=== PATIENT | male | born 1940 | race Caucasian/White ===

== ENCOUNTER 2016-10-26 07:33 | Outpatient (CLI) | payer MEDICARE, OTHER | END 2016-10-26 07:34 | disposition home or self-care (01) | DX: I48.91 Unspecified atrial fibrillation (principal) ==

== ENCOUNTER 2016-12-14 07:39 | Outpatient (CLI) | payer MEDICARE, OTHER | END 2016-12-14 07:40 | disposition home or self-care (01) | DX: I48.91 Unspecified atrial fibrillation (principal) ==

== ENCOUNTER 2017-01-11 07:34 | Outpatient (CLI) | payer MEDICARE, OTHER | END 2017-01-11 07:35 | disposition home or self-care (01) | DX: I48.91 Unspecified atrial fibrillation (principal) ==

== ENCOUNTER 2017-01-22 07:44 | Outpatient (CLI) | payer MEDICARE, OTHER | END 2017-01-22 07:45 | disposition home or self-care (01) | DX: I48.91 Unspecified atrial fibrillation (principal) ==

== ENCOUNTER 2017-01-31 07:50 | Outpatient (CLI) | payer MEDICARE, OTHER | END 2017-01-31 07:51 | disposition home or self-care (01) | DX: I48.91 Unspecified atrial fibrillation (principal) ==

== ENCOUNTER 2017-02-05 08:02 | Outpatient (CLI) | payer MEDICARE, OTHER | END 2017-02-05 08:03 | disposition home or self-care (01) | DX: I48.91 Unspecified atrial fibrillation (principal) ==

== ENCOUNTER 2017-03-04 07:34 | Outpatient (CLI) | payer MEDICARE, OTHER | END 2017-03-04 07:35 | disposition home or self-care (01) | DX: I48.91 Unspecified atrial fibrillation (principal) ==

== ENCOUNTER 2017-03-22 07:50 | Outpatient (CLI) | payer MEDICARE, OTHER | END 2017-03-22 07:51 | disposition home or self-care (01) | LOC: LAB.F 07:50 | PROVIDERS: ATTEND Internal Medicine | DX: I48.91 Unspecified atrial fibrillation (principal) | CPT/HCPCS: 85610 ==

== ENCOUNTER 2017-04-19 13:21 | Outpatient (CLI) | payer MEDICARE, OTHER | END 2017-04-19 13:22 | disposition home or self-care (01) | LOC: LAB.F 13:21 | PROVIDERS: ATTEND Internal Medicine | DX: I48.91 Unspecified atrial fibrillation (principal) | CPT/HCPCS: 85610 ==

== ENCOUNTER 2017-05-03 15:50 | Outpatient (CLI) | payer MEDICARE, OTHER | END 2017-05-03 15:51 | disposition home or self-care (01) | LOC: LAB.F 15:50 | PROVIDERS: ATTEND Internal Medicine | DX: I48.91 Unspecified atrial fibrillation (principal) | CPT/HCPCS: 85610 ==

== ENCOUNTER 2017-07-05 14:43 | Outpatient (CLI) | payer MEDICARE, OTHER | END 2017-07-05 14:44 | disposition home or self-care (01) | LOC: LAB.F 14:43 | PROVIDERS: ATTEND Internal Medicine | DX: I48.91 Unspecified atrial fibrillation (principal) | CPT/HCPCS: 85610 ==

== ENCOUNTER 2017-07-26 07:45 | Outpatient (CLI) | payer MEDICARE, OTHER | END 2017-07-26 07:46 | disposition home or self-care (01) | LOC: LAB.F 07:45 | PROVIDERS: ATTEND Internal Medicine | DX: I48.91 Unspecified atrial fibrillation (principal) | CPT/HCPCS: 85610 ==

== ENCOUNTER 2017-08-09 07:33 | Outpatient (CLI) | payer MEDICARE, OTHER | END 2017-08-09 07:34 | disposition home or self-care (01) | LOC: LAB.F 07:33 | PROVIDERS: ATTEND Internal Medicine | DX: I48.91 Unspecified atrial fibrillation (principal) | CPT/HCPCS: 85610 ==

== ENCOUNTER 2017-10-11 09:30 | Outpatient (CLI) | payer MEDICARE, OTHER | END 2017-10-11 09:31 | disposition home or self-care (01) | LOC: LAB.F 09:30 | PROVIDERS: ATTEND Internal Medicine | DX: I48.91 Unspecified atrial fibrillation (principal) | CPT/HCPCS: 85610 ==

== ENCOUNTER 2017-10-14 21:17 | Emergency (ER) | payer MEDICARE, OTHER ==
[2017-10-14] MEDS ORDERED: SODIUM CHLORIDE 0.9% 1,000 ML IV ONE (22:21)
[2017-10-14 22:35] LABS: BASOPHILS % (AUTO) 0.3 %; EOSINOPHILS # (AUTO) 0.1 10^3/uL (0.0-0.7); EOSINOPHILS % (AUTO) 1.2 %; HCT - HEMATOCRIT 41.4 % (42.0-52.0); HGB - HEMOGLOBIN 13.8 g/dL (14.0-18.0); LYMPHOCYTES # (AUTO) 1.6 10^3/uL (1.5-3.5); LYMPHOCYTES % (AUTO) 14.4 %; MEAN CORPUSCULAR HEMOGLOBIN 30.4 pg (27.0-31.0); MEAN CORPUSCULAR HGB CONC 33.2 g/dL (32.0-36.0); MEAN CORPUSCULAR VOLUME 91.7 fL (80.0-94.0); MEAN PLATELET VOLUME 7.2 fL (7.4-11.4); MONOCYTES % (AUTO) 8.9 %; NEUTROPHILS # (AUTO) 8.4 10^3/uL (1.5-6.6); NEUTROPHILS % (AUTO) 75.2 %; RED BLOOD COUNT 4.52 10^6/uL (4.70-6.10); RED CELL DISTRIBUTION WIDTH 13.2 % (12.0-15.0); UNCORRECTED WHITE BLOOD COUNT 11.2 x10^3/uL; WHITE BLOOD COUNT 11.2 x10^3/uL (4.8-10.8)
[2017-10-14 22:40] LABS: INR 3.1 (0.8-1.2); PT - PROTHROMBIN TIME 33.6 secs (9.9-12.6)
[2017-10-14 22:47] LABS: PARTIAL THROMBOPLASTIN TIME 42.7 secs (24.9-33.3)
[2017-10-14 23:01] LABS: ALBUMIN/GLOBULIN RATIO 1.1 (1.0-2.2); BILIRUBIN,TOTAL 0.2 mg/dL (0.2-1.0); CALCIUM 9.8 mg/dL (8.5-10.3); CREATININE 0.7 mg/dL (0.6-1.2); POTASSIUM 3.9 mmol/L (3.5-5.0)
[2017-10-14] MEDS ORDERED: IOPAMIDOL-300 100 ML VIAL ONE (23:09)
[2017-10-14] MEDS ORDERED: IOPAMIDOL-300 100 ML VIAL IVP ONE (23:33)
--- NOTE | 2017-10-14 23:52 | CT Preliminary Report ---
Exam: CT CHEST ANGIO (PE) IMPRESSION: 1. No pulmonary emboli. 2. No aortic aneurysm or dissection. 3. Large heart. [facility] SITE ID: [id number]
--- NOTE | 2017-10-14 23:54 | CT Report ---
EXAM: CT ANGIOGRAM CHEST EXAM DATE: 10/14/2017 11:23 PM. CLINICAL HISTORY: Back pain. History of PE. COMPARISON: 04/21/2006. TECHNIQUE: Routine helical imaging was performed through the chest in the pulmonary arterial phase. I V Contrast: 80 cc of Isovue 300. Reconstructions: Coronal 3-D MIP reconstructions.Sagittal and estevez l. In accordance with CT protocol optimization, one or more of the following dose reduction techniques w ere utilized for this exam: automated exposure control, adjustment of mA and/or KV based on patient s ize, or use of iterative reconstructive technique. FINDINGS: Pulmonary Arteries: Diagnostic quality: Adequate through the segmental arteries. No evidence for acute or chronic pulmona ry emboli. RV/LV is within normal limits. There is no interventricular septal bowing. There is no reflux of cont rast material in the IVC. Lungs/Pleura: No consolidation, nodules, or edema. No effusions or pneumothorax. Mediastinum: Aortic and coronary artery calcification noted. Large heart. No adenopathy. Thoracic Aorta: Unremarkable. Upper Abdomen: Unremarkable. Other: Old right rib fractures noted. IMPRESSION: 1. No pulmonary emboli. 2. No aortic aneurysm or dissection. 3. Large heart. [facility] Referring Provider Line: [phone] SITE ID: [id number]
[2017-10-15] MEDS ORDERED: CYCLOBENZAPRINE 10 MG TABLET PO STA (00:13)
--- NOTE | 2017-10-15 00:17 | ED Physician Documentation ---
History of Present Illness - Stated complaint Stated Complaint: BACK/SHOULDER PX - Chief complaint Chief Complaint: Back Pain - History obtained from History obtained from: Patient (pt is here for evaluation of upper back pain and posterior neck pain. states that it started a couple days ago. worse today , no fevers, is on coumadin and has an IVC filer for prior DVT/PE's. states that this feels similar to his prior PE's. last INR was 2.5. denies chest pain and shorthess of breath. no trauma.) Review of Systems Constitutional: denies: Fever, Chills, Fatigue Throat: denies: Dental pain / toothache, Sore throat, Swollen tonsils, Swallowed foreign body Cardiac: denies: Chest pain / pressure, Palpitations, Pedal edema Respiratory: denies: Dyspnea, Cough, Hemoptysis, Wheezing GI: denies: Abdominal Pain, Nausea, Vomiting, Constipation, Diarrhea : denies: Dysuria, Frequency Skin: denies: Rash, Lesions Musculoskeletal: reports: Neck pain, Back pain Neurologic: denies: Focal weakness, Headache, LOC PD PAST MEDICAL HISTORY - Past Medical History Past Medical History: Yes Cardiovascular: Hypertension, Atrial fibrillation - Past Surgical History Past Surgical History: Yes - Present Medications Home Medications: Ambulatory Orders Medication Instructions Recorded Confirmed Finasteride 5 mg PO DAILY 10/14/17 10/14/17 Lisinopril 20 mg PO DAILY 10/14/17 10/14/17 Metoprolol Succinate 25 mg PO DAILY 10/14/17 10/14/17 Tamsulosin [Flomax] 0.4 mg PO DAILY 10/14/17 10/14/17 Warfarin [Coumadin] 5 mg PO DAILY 10/14/17 10/14/17 metFORMIN [Glucophage] 500 mg PO BID 10/14/17 10/14/17 Cyclobenzaprine [Flexeril] 10 mg PO TID PRN #14 tablet 10/15/17 - Allergies Allergies/Adverse Reactions: Allergies Allergy/AdvReac Type Severity Reaction Status Date / Time No Known Drug Allergies Allergy Verified 10/14/17 21:39 - Social History Does the pt smoke?: No Smoking Status: Never smoker Does the pt drink ETOH?: No Does the pt have substance abuse?: No - Immunizations Immunizations are current?: Yes - POLST Patient has POLST: No PD ED PE NORMAL - Vitals Vital signs reviewed: Yes - General General: Alert and oriented X 3, No acute distress, Well developed/nourished - HEENT HEENT: Atraumatic, Moist mucous membranes, Pharynx benign - Neck Neck: Supple, no meningeal sign, No bony TTP, Other (TTP bilateral with right > Left paraspinal reproducible neck pain decreased ROM secondary to neck pain ) - Cardiac Cardiac: RRR, No murmur - Respiratory Respiratory: No respiratory distress, Clear bilaterally - Abdomen Abdomen: Soft, Non tender, Non distended - Back Back: No CVA TTP - Derm Derm: Normal color, Warm and dry, No rash - Extremities Extremities: No deformity, No tenderness to palpate, No edema - Neuro Neuro: Alert and oriented X 3 Eye Opening: Spontaneous Motor: Obeys Commands Verbal: Oriented GCS Score: 15 - Psych Psych: Normal mood, Normal affect Results - Vitals Vitals: Vital Signs - 24 hr 10/14/17 10/14/17 21:36 22:39 Temperature 36.9 C Heart Rate 68 65 Respiratory 18 21 Rate Blood Pressure 190/73 H 183/78 H O2 Saturation 97 97 Oxygen O2 Source Room air - EKG (time done) 2200 Rate: Rate (enter#) Rhythm: NSR Witt: Normal Intervals: Normal [place], QRS normal QRS: Normal Other comments: Other comments (PAC's with incomplete RBBB) - Labs Labs: Laboratory Tests 10/14/17 10/14/17 10/14/17 22:29 22:29 22:29 WBC 11.2 H RBC 4.52 L Hgb 13.8 L Hct 41.4 L MCV 91.7 MCH 30.4 MCHC 33.2 RDW 13.2 Plt Count 276 MPV 7.2 L Neut # 8.4 H Lymph # 1.6 [place] # 1.0 Eos # 0.1 Baso # 0.0 Absolute Nucleated RBC 0.00 Nucleated RBC % 0.0 PT 33.6 H INR 3.1 H APTT 42.7 H Sodium 140 Potassium 3.9 Chloride 101 Carbon Dioxide 29 Anion Gap 10.0 BUN 14 Creatinine 0.7 Estimated GFR (MDRD) 109 Glucose 142 H Calcium 9.8 Total Bilirubin 0.2 AST 17 ALT 16 Alkaline Phosphatase 96 Troponin I Total Protein 8.0 Albumin 4.2 Globulin 3.8 Albumin/Globulin Ratio 1.1 Lipase 14 L 10/14/17 22:29 WBC RBC Hgb Hct MCV MCH MCHC RDW Plt Count MPV Neut # Lymph # [place] # Eos # Baso # Absolute Nucleated RBC Nucleated RBC % PT INR APTT Sodium Potassium Chloride Carbon Dioxide Anion Gap BUN Creatinine Estimated GFR (MDRD) Glucose Calcium Total Bilirubin AST ALT Alkaline Phosphatase Troponin I < 0.04 Total Protein Albumin Globulin Albumin/Globulin Ratio Lipase - Rads (name of study) CT PE Radiology: Final report received, EMP read contemporaneously PD MEDICAL DECISION MAKING - ED course Complexity details: reviewed results, re-evaluated patient, considered differential, d/w patient ED course: Pt with no PE on the CTA. his INR today was 3.1 and we discussed that. He will take 1/2 dose of coumadin for the next 2 days. He has no back pain or shoulder pain on my exam but dies have paraspinal neck pain and his PE is C/W MSK in origin. doubt dissection. discussed with him. he was given return precautions. He expressed understanding. we discussed his blood pressure and he will continue his blood pressure medications and will follow up with his primary care provider. Departure - Departure Disposition: Home, Self Care Clinical Impression: Neck pain Hypertension Qualifiers: Hypertension type: unspecified Qualified Code(s): I10 - Essential (primary) hypertension Condition: Good Instructions: ED Neck Back Pain General Follow-Up: Angelo Plaza MD [Primary Care Provider] - Prescriptions: Cyclobenzaprine [Flexeril] 10 mg PO TID PRN #14 tablet PRN Reason: Spasms Comments: Take your warfarin like we discussed. continue your other medications as directed. The flexeril that you were given may make you sleepy so no driving. Take your blood pressure at home like we discussed and follow up with your primary care provider in the next week. Return to the ER for any new or worsening symptoms.
[2017-10-15 00:21] VITALS: BP 167/97
== END 2017-10-15 00:29 | disposition home or self-care (01) ==
LOC: ED 21:17
DX: M54.2 Cervicalgia (principal); I10 Essential (primary) hypertension; I45.10 Unspecified right bundle-branch block; R94.31 Abnormal electrocardiogram [ECG] [EKG]; Z86.711 Personal history of pulmonary embolism; Z86.718 Personal history of other venous thrombosis and embolism; Z79.01 Long term (current) use of anticoagulants
CPT/HCPCS: 36415; 71275; 80053; 83690; 84484; 85025; 85610; 85730; 93005; 96360; 99283; 99284; A9270; Q9967

== ENCOUNTER 2017-10-22 08:00 | Outpatient (CLI) | payer MEDICARE, OTHER | END 2017-10-22 08:01 | disposition home or self-care (01) | LOC: LAB.F 08:00 | PROVIDERS: ATTEND Internal Medicine | DX: I48.91 Unspecified atrial fibrillation (principal) | CPT/HCPCS: 85610 ==

== ENCOUNTER 2017-10-31 09:09 | Outpatient (CLI) | payer MEDICARE, OTHER ==
[2017-10-31 17:57] LABS: ALBUMIN 4.3 g/dL (3.2-5.5); ALBUMIN/GLOBULIN RATIO 1.2 (1.0-2.2); BILIRUBIN,TOTAL 0.3 mg/dL (0.2-1.0); CALCIUM 9.2 mg/dL (8.5-10.3); CREATININE 0.8 mg/dL (0.6-1.2)
[2017-10-31 18:13] LABS: HB2 TOTAL 15.7 g/dL; HEMOGLOBIN A1C 0.65 g/dL; HEMOGLOBIN A1C % 5.9 % (4.6-6.2)
== END 2017-10-31 09:10 | disposition home or self-care (01) ==
LOC: LAB.F 09:09
PROVIDERS: ATTEND Family Medicine
DX: I48.91 Unspecified atrial fibrillation (principal); Z79.01 Long term (current) use of anticoagulants; E78.5 Hyperlipidemia, unspecified; I10 Essential (primary) hypertension; N40.0 Benign prostatic hyperplasia without lower urinary tract symptoms
CPT/HCPCS: 36415; 80053; 83036; 85610

== ENCOUNTER 2018-03-28 07:31 | Outpatient (CLI) | payer MEDICARE, OTHER ==
[2018-03-28 12:23] LABS: CHOL/HDL RATIO 2.9 (<5.0); CHOLESTEROL 156 mg/dL; HDL CHOLESTEROL 53 mg/dL; LDL CHOLESTEROL,CALCULATED 78 mg/dL; LDL/HDL RATIO 1.5 (<3.6); VLDL CHOLESTEROL 25 mg/dL
[2018-03-28 12:39] LABS: HGB - HEMOGLOBIN 14.4 g/dL (14.0-18.0); MEAN CORPUSCULAR HEMOGLOBIN 30.9 pg (27.0-31.0); MEAN CORPUSCULAR HGB CONC 33.3 g/dL (32.0-36.0); MEAN PLATELET VOLUME 8.7 fL (7.4-11.4); RED BLOOD COUNT 4.66 10^6/uL (4.70-6.10); RED CELL DISTRIBUTION WIDTH 13.3 % (12.0-15.0); WHITE BLOOD COUNT 6.4 x10^3/uL (4.8-10.8)
== END 2018-03-28 07:32 | disposition home or self-care (01) ==
LOC: LAB.F 07:31
PROVIDERS: ATTEND Internal Medicine Cardiovascular Disease
DX: I48.0 Paroxysmal atrial fibrillation (principal); I63.9 Cerebral infarction, unspecified; E78.5 Hyperlipidemia, unspecified
CPT/HCPCS: 36415; 80061; 83721; 85027

== ENCOUNTER 2019-03-19 07:35 | Outpatient (CLI) | payer MEDICARE, OTHER ==
[2019-03-19 10:56] LABS: MEAN CORPUSCULAR HEMOGLOBIN 30.4 pg (27.0-31.0); MEAN CORPUSCULAR HGB CONC 32.9 g/dL (32.0-36.0); MEAN CORPUSCULAR VOLUME 92.6 fL (80.0-94.0); MEAN PLATELET VOLUME 8.3 fL (7.4-11.4); RED BLOOD COUNT 4.26 10^6/uL (4.70-6.10); RED CELL DISTRIBUTION WIDTH 14.4 % (12.0-15.0); WHITE BLOOD COUNT 5.9 x10^3/uL (4.8-10.8)
[2019-03-19 11:05] LABS: ALBUMIN 4.2 g/dL (3.2-5.5); ALBUMIN/GLOBULIN RATIO 1.4 (1.0-2.2); ALKALINE PHOSPHATASE 79 IU/L (42-121); ALT ALANINE AMINOTRANSFERASE 19 IU/L (10-60); AST ASPARTATE AMINOTRANSFERASE 19 IU/L (10-42); BILIRUBIN,TOTAL 0.6 mg/dL (0.2-1.0); BUN - BLOOD UREA NITROGEN 16 mg/dL (6-20); CALCIUM 9.1 mg/dL (8.5-10.3); CARBON DIOXIDE - CO2 24 mmol/L (21-32); CHLORIDE 107 mmol/L (101-111); CHOL/HDL RATIO 3.5 (<5.0); CHOLESTEROL 135 mg/dL; CREATININE 0.8 mg/dL (0.6-1.2); GFR - MDRD 93 (>89); GLUCOSE 108 mg/dL (70-100); HDL CHOLESTEROL 39 mg/dL; LDL CHOLESTEROL,CALCULATED 75 mg/dL; LDL/HDL RATIO 1.9 (<3.6); SODIUM 141 mmol/L (135-145); TOTAL PROTEIN 7.1 g/dL (6.7-8.2); VLDL CHOLESTEROL 21 mg/dL
== END 2019-03-19 07:36 | disposition home or self-care (01) ==
LOC: LAB.F 07:35
PROVIDERS: ATTEND Nurse Practitioner
DX: I10 Essential (primary) hypertension (principal); I48.0 Paroxysmal atrial fibrillation; E78.5 Hyperlipidemia, unspecified
CPT/HCPCS: 36415; 80053; 80061; 83721; 85027

== ENCOUNTER 2019-06-10 11:14 | Outpatient (CLI) | payer MEDICARE, OTHER ==
[2019-06-10 17:39] LABS: HGB - HEMOGLOBIN 13.9 g/dL (14.0-18.0); MEAN CORPUSCULAR HEMOGLOBIN 30.2 pg (27.0-31.0); MEAN CORPUSCULAR HGB CONC 31.8 g/dL (32.0-36.0); MEAN PLATELET VOLUME 10.1 fL (7.4-11.4); RED BLOOD COUNT 4.6 10^6/uL (4.70-6.10); RED CELL DISTRIBUTION WIDTH 12.8 % (12.0-15.0); WHITE BLOOD COUNT 7.2 x10^3/uL (4.8-10.8)
[2019-06-10 17:44] LABS: INR 1.2 (0.8-1.2); PT - PROTHROMBIN TIME 13.7 secs (9.9-12.6)
[2019-06-10 18:03] LABS: CALCIUM 9.4 mg/dL (8.5-10.3); CREATININE 0.8 mg/dL (0.6-1.2)
== END 2019-06-10 11:15 | disposition home or self-care (01) ==
LOC: LAB.S 11:14
PROVIDERS: ATTEND Internal Medicine Cardiovascular Disease
DX: I35.0 Nonrheumatic aortic (valve) stenosis (principal)
CPT/HCPCS: 36415; 80048; 85027; 85610

== ENCOUNTER 2020-02-06 09:36 | Outpatient (CLI) | payer MEDICARE | END 2020-02-06 09:37 | disposition short-term general hospital (02) | LOC: EMS 09:36 | PROVIDERS: ATTEND Surgery | DX: R55 Syncope and collapse (principal); R42 Dizziness and giddiness | CPT/HCPCS: A0425; A0429 ==

== ENCOUNTER 2023-02-20 14:48 | Outpatient (CLI) | payer MEDICARE, OTHER | END 2023-02-20 14:49 | disposition home or self-care (01) | LOC: DI 14:48 | PROVIDERS: ATTEND Physician Assistant | DX: I08.3 Combined rheumatic disorders of mitral, aortic and tricuspid valves (principal); I48.0 Paroxysmal atrial fibrillation; Z95.2 Presence of prosthetic heart valve | CPT/HCPCS: 93306 ==

== ENCOUNTER 2023-04-10 08:11 | Day surgery (SDC) | payer MEDICARE, OTHER ==
[2023-04-10] MEDS ORDERED: LACTATED RINGERS 1,000 ML IV ONE ×2 (08:40→09:43)
--- NOTE | 2023-04-10 09:10 | ANESTHESIA ---
Pre-Anesthesia VS, & Labs - Diagnosis pos cologuard - Procedure colonoscopy Vital Signs: Temp Pulse Resp BP Pulse Ox O2 Flow Rate 36.3 C L 96 14 170/76 H 94 04/10/23 08:21 04/10/23 08:21 04/10/23 08:21 04/10/23 08:21 04/10/23 08:21 Height: 5 ft 9 in Weight (kg): 99 kg Body Mass Index: 32.2 BMI Classification: Obese - NPO >8 hours - Lab Results Current Lab Results: Laboratory Tests 04/10/23 08:41: POC Whole Bld Glucose 105 H Home Medications and Allergies Home Medications: Ambulatory Orders Apixaban [Eliquis] 5 mg PO DAILY 04/10/23 Atorvastatin Calcium 40 mg PO DAILY 04/10/23 Empagliflozin [Jardiance] 10 mg PO DAILY 04/10/23 Eplerenone [Inspra] 25 mg PO DAILY 04/10/23 Losartan Potassium 100 mg PO DAILY 04/10/23 Potassium Chloride 8 meq PO DAILY 04/10/23 oxyBUTYnin chloride [Oxybutynin Chloride] 5 mg PO DAILY 04/10/23 Finasteride 5 mg PO DAILY 10/14/17 Metoprolol Succinate 25 mg PO DAILY 10/14/17 Tamsulosin [Flomax] 0.4 mg PO DAILY 10/14/17 metFORMIN [Glucophage] 500 mg PO BID 10/14/17 Apixaban [Eliquis] 5 mg PO DAILY 04/10/23 Atorvastatin Calcium 40 mg PO DAILY 04/10/23 Empagliflozin [Jardiance] 10 mg PO DAILY 04/10/23 Eplerenone [Inspra] 25 mg PO DAILY 04/10/23 Losartan Potassium 100 mg PO DAILY 04/10/23 Potassium Chloride 8 meq PO DAILY 04/10/23 oxyBUTYnin chloride [Oxybutynin Chloride] 5 mg PO DAILY 04/10/23 Allergies/Adverse Reactions: Allergies Allergy/AdvReac Type Severity Reaction Status Date / Time No Known Drug Allergies Allergy Verified 10/14/17 21:39 Anes History & Medical History - Anesthetic History Anesthesia Complications: reports: No previous complications Family history of Anesthesia Complications: Denies Family history of Malignant Hyperthermia: Denies - Medical History Cardiovascular: reports: Congestive heart failure, Hypertension, High cholesterol, Atrial fibrillation, Murmur Urinary: reports: Benign prostate hypertrophy Musculoskeletal: reports: Osteoarthritis, Chronic back pain Endocrine/Autoimmune: reports: Type 2 diabetes Smoking Status: Never smoker - Surgical History General: reports: Colonoscopy Orthopedic: reports: Hip replacement, Knee replacement, Other Exam General: Alert, Oriented x3, Cooperative Dental: WNL Mouth Openin Fingerbreadth Neck Mobility: Normal Mallampati classification: II Thyromental Distance: 4-6 cm Respiratory: Lungs clear Plan Anesthesia Type: General, Total IV Consent for Procedure(s) Verified and Reviewed: Yes Code Status: Attempt Resuscitation ASA classification: 3-Severe systemic disease Is this case an emergency?: No
[2023-04-10] MEDS ORDERED: PROPOFOL 500 MG/50 ML 500 MG/50 ML VIAL ONE (09:19)
[2023-04-10] MEDS ORDERED: ePHEDrine 50 MG/ML VIAL IVP ONE (09:42)
[2023-04-10 10:30] VITALS: BP 142/75
--- NOTE | 2023-04-10 14:10 | ANESTHESIA POST OP EVALUATION ---
Anesthesia Post Eval - Post Anesthesia Eval Vitals: Last Vital Signs Temp 36.3 C L 04/10/23 10:20 Pulse 83 04/10/23 10:20 Resp 16 04/10/23 10:20 BP 142/75 H 04/10/23 10:20 Pulse Ox 95 04/10/23 10:20 O2 Flow Rate CV Function Including HR & BP: Stable Pain Control: Satisfactory Nausea & Vomiting: Negative Mental Status: Baseline Respiratory Status: Airway Patent Hydration Status: Satisfactory Anesthesia Complications: None
== END 2023-04-10 08:12 | disposition home or self-care (01) ==
LOC: SDS 08:11
PROVIDERS: ATTEND Surgery
PROC: 0DBM8ZX Excision of Descending Colon, Via Natural or Artificial Opening Endoscopic, Diagnostic (ICD-10-PCS; 2023-04-10)
PROC: 0DBH8ZX Excision of Cecum, Via Natural or Artificial Opening Endoscopic, Diagnostic (ICD-10-PCS; principal; 2023-04-10 09:15)
DX: Z12.11 Encounter for screening for malignant neoplasm of colon (principal); R19.5 Other fecal abnormalities; D12.0 Benign neoplasm of cecum; D12.4 Benign neoplasm of descending colon; K57.30 Diverticulosis of large intestine without perforation or abscess without bleeding; K64.1 Second degree hemorrhoids; E11.9 Type 2 diabetes mellitus without complications; E66.9 Obesity, unspecified; I11.0 Hypertensive heart disease with heart failure; I50.9 Heart failure, unspecified; Z68.33 Body mass index [BMI] 33.0-33.9, adult; Z79.84 Long term (current) use of oral hypoglycemic drugs
CPT/HCPCS: 45380; J7120

== ENCOUNTER 2023-05-05 09:21 | Inpatient (IN) | payer MEDICARE, OTHER ==
--- NOTE | 2023-05-05 10:17 | ED Physician Documentation ---
PD HPI URI - Stated complaint Stated Complaint: CHILLS,NAUSEA - Chief complaint Chief Complaint: General - History obtained from History obtained from: Patient, Family (spouse) - History of Present Illness Timing - onset: Last night, Yesterday Associated symptoms: Fever (He reports shaking chills followed by then sweats and pallor undulating over night several times. He did not take his temperature per se.), Chills, Nasal congestion, Dry cough, NVD (nausea with several episodes of vomiting overnight. No diarrhea.), Other (weakness, was unable to get up from bathroom toilet last night and slumped to floor and crawled to bedside. On floor ffew hourfs before getting himself up to bed.). No: Sore throat, Hemoptysis, Chest pain Contributing factors: No: Sick contact, Unimmunized, COPD / asthma Similar symptoms before: Has not had sx before Recently seen: Clinic (He was seen at the dentist 3 days ago for cavities/fillings. No infection at the time. Given Cipro prophylactic due to history of heart murmur.) Review of Systems Constitutional: reports: Fever, Chills, Myalgias, Fatigue (just the past day) Nose: reports: Congestion. denies: Rhinorrhea / runny nose Throat: denies: Sore throat Cardiac: denies: Chest pain / pressure, Palpitations, Pedal edema Respiratory: reports: Dyspnea. denies: Wheezing GI: reports: Nausea, Vomiting. denies: Diarrhea Neurologic: reports: Generalized weakness. denies: Altered mental status, Headache PD PAST MEDICAL HISTORY - Past Medical History Past Medical History: Yes Cardiovascular: Congestive heart failure, Hypertension, High cholesterol, Deep vein thrombosis, Pulmonary embolism, Atrial fibrillation, Murmur Respiratory: None Neuro: CVA Endocrine/Autoimmune: Type 2 diabetes GI: Colon polyps : Benign prostate hypertrophy HEENT: Chronic hearing loss Psych: None Musculoskeletal: Osteoarthritis, Chronic back pain Derm: None - Past Surgical History Past Surgical History: Yes General: Colonoscopy Ortho: Hip replacement, Knee replacement, Other - Present Medications Home Medications: Ambulatory Orders Medication Instructions Recorded Confirmed Finasteride 5 mg PO DAILY 10/14/17 05/05/23 Metoprolol Succinate 25 mg PO BID 10/14/17 05/05/23 Tamsulosin [Flomax] 0.4 mg PO DAILY 10/14/17 05/05/23 metFORMIN [Glucophage] 500 mg PO BID 10/14/17 05/05/23 Apixaban [Eliquis] 5 mg PO BID 04/10/23 05/05/23 Atorvastatin Calcium 40 mg PO DAILY 04/10/23 05/05/23 Empagliflozin [Jardiance] 10 mg PO DAILY 04/10/23 05/05/23 Eplerenone [Inspra] 25 mg PO DAILY 04/10/23 05/05/23 Losartan Potassium 100 mg PO DAILY 04/10/23 05/05/23 Potassium Chloride 8 meq PO DAILY 04/10/23 05/05/23 oxyBUTYnin chloride [Oxybutynin 5 mg PO DAILY 04/10/23 05/05/23 Chloride] Cholecalciferol [Vitamin D3] 50 mcg PO DAILY 05/05/23 05/05/23 Elderberry Fruit [Elderberry] 350 mg PO DAILY 05/05/23 05/05/23 - Allergies Allergies/Adverse Reactions: Allergies Allergy/AdvReac Type Severity Reaction Status Date / Time No Known Drug Allergies Allergy Verified 05/05/23 09:44 - Social History Does the pt smoke?: No Smoking Status: Never smoker Does the pt drink ETOH?: No ETOH Use: Liquor Does the pt have substance abuse?: No - Immunizations Immunizations are current?: Yes - POLST Patient has POLST: No PD ED PE NORMAL - Vitals Vital signs reviewed: Yes (sats 88% RA) - General General: Alert and oriented X 3, No acute distress, Well developed/nourished - HEENT HEENT: Pharynx benign - Neck Neck: Supple, no meningeal sign, No adenopathy - Cardiac Cardiac: Other (mild 1/6 murmur left chest. ). No: RRR (irregular but controlled rate) - Respiratory Respiratory: No respiratory distress. No: Clear bilaterally (some exp wheezes. No coarse sounds. ) - Abdomen Abdomen: Soft, Non tender - Derm Derm: Normal color, Warm and dry - Extremities Extremities: Normal ROM s pain, No edema, No calf tenderness / cord - Neuro Neuro: Alert and oriented X 3, No motor deficit, Normal speech Eye Opening: Spontaneous Motor: Obeys Commands Verbal: Oriented GCS Score: 15 Results - Vitals Vitals: Vital Signs - 24 hr 05/05/23 05/05/2323 09:37 09:59 10:12 Temperature 37.3 C 37 C Heart Rate 108 H 103 H 102 H Respiratory 25 H 26 H 23 Rate Blood Pressure 150/72 H 150/72 H 111/59 L O2 Saturation 89 L 92 88 L If not protocol : Oxygen Flow, liters/minute 05/05/23 05/05/23 05/05/23 10:13 11:24 11:31 Temperature 36.9 C Heart Rate 106 H 91 91 Respiratory 24 22 21 Rate Blood Pressure 134/71 H O2 Saturation 92 94 If not protocol 2 2 3 : Oxygen Flow, liters/minute 05/05/23 05/05/23 05/05/23 11:47 12:30 12:38 Temperature 37.2 C Heart Rate 86 100 88 Respiratory 23 22 24 Rate Blood Pressure 139/75 H 128/70 127/60 O2 Saturation 92 90 L 85 L If not protocol 2 : Oxygen Flow, liters/minute 05/05/23 05/05/23 05/05/23 12:40 13:18 14:25 Temperature Heart Rate 97 79 84 Respiratory 22 20 22 Rate Blood Pressure 130/77 O2 Saturation 92 91 L 94 If not protocol 2 2 2 : Oxygen Flow, liters/minute 05/05/23 05/05/23 05/05/23 15:16 15:30 16:49 Temperature Heart Rate 80 75 75 Respiratory 20 20 24 Rate Blood Pressure 129/54 L 130/54 L O2 Saturation 91 L 92 If not protocol 2 1.5 : Oxygen Flow, liters/minute Oxygen O2 Source Nasal cannula Oxygen Flow Rate 22 - Labs Labs: Laboratory Tests 05/05/23 05/05/23 05/05/23 09:51 09:51 09:51 WBC 12.4 H RBC 4.29 L Hgb 13.0 L Hct 39.0 L MCV 90.9 MCH 30.3 MCHC 33.3 RDW 12.8 Plt Count 152 MPV 9.6 Neut # (Auto) 11.5 H Lymph # (Auto) 0.3 L [place] # (Auto) 0.5 Eos # (Auto) 0.0 Baso # (Auto) 0.1 Absolute Nucleated RBC 0.00 Nucleated RBC % 0.0 Sodium 138 Potassium 3.8 Chloride 105 Carbon Dioxide 23 Anion Gap 10.0 BUN 27 H Creatinine 1.2 Estimated GFR (MDRD) 58 L Glucose 143 H Lactic Acid 1.7 Calcium 9.4 Total Bilirubin 0.8 AST 23 ALT 21 Alkaline Phosphatase 80 Total Protein 7.3 Albumin 3.6 Globulin 3.7 Albumin/Globulin Ratio 1.0 Urine Color Urine Clarity Urine pH Ur Specific [place] Urine Protein Urine Glucose (UA) Urine Ketones Urine Occult Blood Urine Nitrite Urine Bilirubin Urine Urobilinogen Ur Leukocyte Esterase Urine RBC Urine WBC Ur Squamous Epith Cells Urine Bacteria Urine Mucus Urine Culture Comments Nasal Adenovirus (PCR) Nasal B. parapertussis DNA (PCR) Nasal Coronavir 229E PCR Nasal Coronavir HKU1 PCR Nasal Coronavir NL63 PCR Nasal Coronavir OC43 PCR Nasal Enterovir/Rhinovir PCR Nasal Influenza B PCR Nasal Influenza A PCR Nasal Parainfluen 1 PCR Nasal Parainfluen 2 PCR Nasal Parainfluen 3 PCR Nasal Parainfluen 4 PCR Nasal RSV (PCR) Nasal B.pertussis DNA PCR Nasal C.pneumoniae (PCR) [place] Human Metapneumo PCR Nasal M.pneumoniae (PCR) Nasal SARS-CoV-2 (PCR) 05/05/23 05/05/23 11:08 12:20 WBC RBC Hgb Hct MCV MCH MCHC RDW Plt Count MPV Neut # (Auto) Lymph # (Auto) [place] # (Auto) Eos # (Auto) Baso # (Auto) Absolute Nucleated RBC Nucleated RBC % Sodium Potassium Chloride Carbon Dioxide Anion Gap BUN Creatinine Estimated GFR (MDRD) Glucose Lactic Acid Calcium Total Bilirubin AST ALT Alkaline Phosphatase Total Protein Albumin Globulin Albumin/Globulin Ratio Urine Color DARK YELLOW Urine Clarity CLEAR Urine pH 5.5 Ur Specific [place] 1.025 Urine Protein TRACE Urine Glucose (UA) >=1000 H Urine Ketones TRACE Urine Occult Blood SMALL H Urine Nitrite NEGATIVE Urine Bilirubin NEGATIVE Urine Urobilinogen 0.2 (NORMAL) Ur Leukocyte Esterase NEGATIVE Urine RBC 6-10 H Urine WBC 0-3 Ur Squamous Epith Cells RARE Squamous Urine Bacteria Rare Urine Mucus Few Strands Urine Culture Comments NOT INDICATED Nasal Adenovirus (PCR) NOT DETECTED Nasal B. parapertussis DNA (PCR) NOT DETECTED Nasal Coronavir 229E PCR NOT DETECTED Nasal Coronavir HKU1 PCR NOT DETECTED Nasal Coronavir NL63 PCR NOT DETECTED Nasal Coronavir OC43 PCR NOT DETECTED Nasal Enterovir/Rhinovir PCR NOT DETECTED Nasal Influenza B PCR NOT DETECTED Nasal Influenza A PCR NOT DETECTED Nasal Parainfluen 1 PCR NOT DETECTED Nasal Parainfluen 2 PCR NOT DETECTED Nasal Parainfluen 3 PCR NOT DETECTED Nasal Parainfluen 4 PCR NOT DETECTED Nasal RSV (PCR) NOT DETECTED Nasal B.pertussis DNA PCR NOT DETECTED Nasal C.pneumoniae (PCR) NOT DETECTED [place] Human Metapneumo PCR NOT DETECTED Nasal M.pneumoniae (PCR) NOT DETECTED Nasal SARS-CoV-2 (PCR) NOT DETECTED - Rads (name of study) chest xray Relevant Findings:: Prelim report reviewed, EMP independent interpretation of test (no infiltrates. No vascular congestion.) chest CTA Relevant Findings:: Prelim report reviewed (no PE. bilateral lower ground glass infiltrates and lung adenopathy c/w pneumonia. ) PD Medical Decision Making - ED course Complexity details: reviewed old records, re-evaluated patient (The patient appears comfortable with breathing. His resting oxygenation however is 86 to 88% on room air. It improves to 94% on just 2 L nasal cannula. He does have some wheezy component and is given a nebulizer treatment.), d/w patient, d/w system consultant Reviewed Lab Results: abrupt onset fevers/rigors and chills last evening and overnight, with general weakness, congestion. Not much cough. had nausea and vomiting overnight. Weak, on floor few hours. Hypoxic in ER. CT chest with small infiltrates/groundglass. No PE. Recent dental work 3 days ago. ED course: The patient has fairly abrupt onset yesterday/last evening into overnight of episodic shaking chills, general weakness and some congestion. He had nausea and several episodes of vomiting. No diarrhea. It sounds generally like a viral type illness. However its fairly abrupt in onset and has a good effect on lung function with the hypoxia. No underlying lung disease. He does have heart disease but does not appear to be in congestive failure. There is no peripheral edema nor calf tenderness. The abruptness of not feeling well and general weakness concurrent with hypoxia does raise concern for vascular process such as PE. I am also concerned for more infiltrative lesion that is seen on the plain chest x-ray. As such a did a CT a of the chest. This showed no signs of blood clots nor tumors or vascular congestion/right heart strain. There was bilateral lower lobe groundglass appearing infiltrates. Recheck of the patient shows an to still be hypoxic when taken off oxygen. On just simple nasal cannula he is doing well. His respiratory viral panel is negative but it still sounds possibly as a viral type illness. Cannot exclude bacterial and so he was given initial antibiotics as well. His white count is good and his lactate is only 1.7. He does not have a fever here. He therefore does not meet sepsis criteria per se. His heart rate is slightly fast but that is baseline atrial fibrillation. At this point I would consider the patient not well enough for discharge given reported some general weakness. We will try standing him up here and see how he does strength hawk. However he still is hypoxic and has chest CT showing early pneumonic process and his symptoms were fairly abrupt since last night. I am concerned for him getting significantly worse. At this point we do not have any beds available in the hospital. Expected poss ible discharges. We will have him here in the ER treating with nebulizers periodically antibiotics and fluids. I did advise the patient and his of the hospital status of no beds available currently. We will let them know if there is discharges and a bed opens. Otherwise his in particular is comfortable with him staying in the hospital and they are both okay with being here in the ER. Subsequently late afternoon, we were notified by charge nurse on the floor that there is a discharge from the surgical service and another bed is available. I will discuss with the hospitalist and see if they are able to move the patient to an observation bed. Departure - Departure Disposition: ED Place in Observation Clinical Impression: Weakness, Hypoxia, Shaking chills Pneumonia Qualifiers: Pneumonia type: due to unspecified organism Laterality: bilateral Lung location: lower lobe of lung Qualified Code(s): J18.9 - Pneumonia, unspecified organism Condition: Stable Record reviewed to determine appropriate education?: Yes
[2023-05-05] MEDS ORDERED: SODIUM CHLORIDE 0.9% 1,000 ML IV STA (10:37)
--- NOTE | 2023-05-05 10:53 | XRAY Report ---
PROCEDURE: Chest 1 View X-Ray INDICATIONS: Sepsis TECHNIQUE: One view of the chest was acquired. COMPARISON: None. FINDINGS: Surgical changes and devices: None. Lungs and pleura: No pleural effusions or pneumothorax. Lungs are clear. Mediastinum: Mediastinal contours appear normal. Heart size is enlarged. Bones and chest wall: No suspicious bony lesions. Overlying soft tissues appear unremarkable. IMPRESSION: No acute cardiopulmonary process. Reviewed by: Des Tate MD on 05/05/2023 10:51 AM PDT Approved by: Des Tate MD on 05/05/2023 10:51 AM PDT Station ID: [id number]
[2023-05-05 10:57] LABS: BASOPHILS # (AUTO) 0.1 10^3/uL (0.0-0.1); BASOPHILS % (AUTO) 0.4 %; LYMPHOCYTES # (AUTO) 0.3 10^3/uL (1.5-3.5); LYMPHOCYTES % (AUTO) 2.6 %; MEAN CORPUSCULAR HEMOGLOBIN 30.3 pg (27.0-31.0); MEAN CORPUSCULAR HGB CONC 33.3 g/dL (32.0-36.0); MEAN CORPUSCULAR VOLUME 90.9 fL (80.0-94.0); MEAN PLATELET VOLUME 9.6 fL (7.4-11.4); MONOCYTES # (AUTO) 0.5 10^3/uL (0.0-1.0); MONOCYTES % (AUTO) 3.6 %; NEUTROPHILS # (AUTO) 11.5 10^3/uL (1.5-6.6); NEUTROPHILS % (AUTO) 92.6 %; PLT - PLATELET COUNT 152 10^3/uL (130-450); RED BLOOD COUNT 4.29 10^6/uL (4.70-6.10); RED CELL DISTRIBUTION WIDTH 12.8 % (12.0-15.0); WHITE BLOOD COUNT 12.4 x10^3/uL (4.8-10.8)
[2023-05-05 11:06] LABS: ALBUMIN 3.6 g/dL (3.2-5.5); BILIRUBIN,TOTAL 0.8 mg/dL (0.2-1.0); CALCIUM 9.4 mg/dL (8.5-10.3); CREATININE 1.2 mg/dL (0.6-1.2); POTASSIUM 3.8 mmol/L (3.5-5.0); TOTAL PROTEIN 7.3 g/dL (6.7-8.2)
[2023-05-05] MEDS ORDERED: ALBUTEROL NEB 2.5 MG/3 ML INH STA (11:16)
[2023-05-05 12:20] LABS: CORONAVIRUS 229E-RESP PCR NOT DETECTED; CORONAVIRUS HKU1-RESP PCR NOT DETECTED; CORONAVIRUS NL63-RESP PCR NOT DETECTED; CORONAVIRUS OC43-RESP PCR NOT DETECTED; HUMAN METAPNEUMOVIRUS NOT DETECTED; INFLUENZA A- RESP PCR PANEL NOT DETECTED; INFLUENZA B - RESP PCR PANEL NOT DETECTED; RHINOVIRUS/ENTEROVIRUS NOT DETECTED; SARS-CoV-2 -RESP PCR PANEL NOT DETECTED
[2023-05-05 12:21] LABS: B. PARAPERTUSSIS- RESP PCR PAN NOT DETECTED; B. PERTUSSIS- RESP PCR PANEL NOT DETECTED; C. PNEUMONIAE- RESP PCR PANEL NOT DETECTED; M. PNEUMONIAE- RESP PCR PANEL NOT DETECTED; PARAINFLUENZA VIRUS 1 NOT DETECTED; PARAINFLUENZA VIRUS 2 NOT DETECTED; PARAINFLUENZA VIRUS 3 NOT DETECTED; PARAINFLUENZA VIRUS 4 NOT DETECTED; RSV- RESP PCR PANEL NOT DETECTED
[2023-05-05 12:26] LABS: BILIRUBIN,URINE NEGATIVE (NEGATIVE); GLUCOSE, URINE (UA) >=1000 mg/dL (NEGATIVE); KETONES,URINE (UA) TRACE mg/dL (NEGATIVE); LEUKOCYTE ESTERASE, URINE NEGATIVE (NEGATIVE); NITRITE,URINE NEGATIVE (NEGATIVE); OCCULT BLOOD,URINE SMALL (NEGATIVE); PH,URINE 5.5 PH (5.0-7.5); PROTEIN,URINE TRACE mg/dL (NEGATIVE); UROBILINOGEN,URINE 0.2 (NORMAL) E.U./dL (NORMAL)
[2023-05-05 12:32] LABS: BACTERIA,URINE Rare /HPF (None Seen); CLARITY,URINE CLEAR (CLEAR); MUCUS,URINE Few Strands; SQUAMOUS EPITHELIAL CELL,UR RARE Squamous (<= Few); WBC,URINE 0-3 /HPF (0-3)
[2023-05-05] MEDS ORDERED: iohexoL-300 100 ML VIAL ONE (12:56)
--- NOTE | 2023-05-05 13:25 | CT Report ---
PROCEDURE: ANGIO CHEST W/WO INDICATIONS: fever/chills, hypoxia acute CONTRAST: 80ml omni 300 TECHNIQUE: After the administration of intravenous contrast, 2 mm axial images were acquired from the pulmonary apices to the posterior costophrenic angles during the arterial phase. In addition, 1 mm lung kernel and 5 mm soft tissue kernel reconstructions were performed. 3-dimensional coronal oblique maximum int ensity projection (MIP) reformats, 8 mm axial MIP, and 5 mm coronal and sagittal MPR reformats were t hen performed through the thorax. For radiation dose reduction, the following was used: automated exp osure control, adjustment of mA and/or kV according to patient size. COMPARISON: Chest radiograph from earlier same day and CT chest dated 10/14/2017 FINDINGS: Image quality: Study degraded by moderate respiratory motion artifact. Large vessels: No filling defects within the opacified pulmonary arteries, accounting for motion and contrast timing. No evidence of acute aortic syndrome or aortic aneurysm. Lungs and pleura: Patchy bibasilar opacities. Patchy bilateral lower lobe predominant ill-defined lucy undglass opacities which may be accentuated by respiratory motion artifact. No septal thickening or n odularity. No focal consolidation. No pneumothorax or substantial pleural effusion. No suspicious pu lmonary nodules which require follow up. Mediastinum: Heart size is normal. No pericardial effusion. Post surgical changes of the aortic valve . Coronary artery atherosclerotic calcifications. No large vessel abnormality. Aortic arch atheroscle rotic calcifications are also noted. No mediastinal adenopathy by size criteria. Multiple scattered prominent mediastinal lymph nodes more notable for number rather than size and likely reactive in terry ology. Chest wall and lower neck: Thyroid is unremarkable. No axillary or supraclavicular adenopathy by size . Bones: No aggressive osseous abnormality. Multilevel spondylosis of the imaged spine. Upper Abdomen: Unremarkable. IMPRESSION: 1. No acute pulmonary emboli identified. No evidence for acute right-sided heart strain. 2. Diffuse groundglass opacities of the dependent portions of the bilateral hemithoraces likely accen tuated by respiratory motion artifact. Findings are nonspecific and may represent atelectasis versus infectious/inflammatory process. No focal consolidation seen. 3. Multiple prominent mediastinal lymph nodes more notable for number rather than size and likely shilo ctive in etiology. 4. Atherosclerotic vascular disease. Reviewed by: Thompson Renteria MD on 05/05/2023 12:24 PM [facility] Approved by: Thompson Renteria MD on 05/05/2023 12:24 PM [facility] Station ID: [id number]
[2023-05-05] MEDS ORDERED: AMOX/CLAV 875 MG/125 MG TABLET PO STA (13:49)
[2023-05-05] MEDS ORDERED: iohexoL-300 100 ML VIAL IVP ONE (16:13)
[2023-05-05] MEDS: ALBUTEROL NEB 2.5 MG/3 ML INH SCH ×2 (16:47→21:40)
[2023-05-05] MEDS ORDERED: cefTRIAXone 1 GM in SODIUM CHLORIDE 0.9% MINIBAG 100 ML IV STA (19:44)
[2023-05-05] MEDS ORDERED: AZITHROMYCIN INJ 500 MG in SODIUM CHLORIDE 0.9% 250 ML IV STA (19:45)
[2023-05-05] MEDS ORDERED: ONDANSETRON ODT 4 MG TABLET TL PRN (19:46)
[2023-05-05] MEDS ORDERED: SODIUM CHLORIDE FLUSH 0.9% 10 ML SYRINGE IVP PRN (19:46)
--- NOTE | 2023-05-05 19:48 | ED Physician Documentation ---
ED Addendum - Addendum Addendum: 05/05/23 19:40 Patient signed out to me by Dr. Lou at shift change for admission. There is a bed available at 7 PM so I placed a telemetry hospitalist consult. Patient is to be admitted for pneumonia with hypoxia. During presentation with hospitalist we noted that patient had not been given a dose of IV antibiotics and have agreed that we will start with IV Rocephin and IV azithromycin. Hospitalist also requested A procalcitonin level. 05/05/23 20:18 I Medicated with the telemetry hospitalist the patient's blood culture from earlier today has resulted positive and that his procalcitonin is elevated. Departure - Departure Disposition: ED Place in Observation Clinical Impression: Weakness, Hypoxia, Shaking chills, Bacteremia Pneumonia Qualifiers: Pneumonia type: due to unspecified organism Laterality: bilateral Lung location: lower lobe of lung Qualified Code(s): J18.9 - Pneumonia, unspecified organism Condition: Stable Discharge Date/Time: 05/05/23 20:42
[2023-05-05] MEDS ORDERED: BENZONATATE 100 MG CAPSULE PO PRN (19:55)
--- NOTE | 2023-05-05 19:58 | HISTORY & PHYSICAL EXAMINATION ---
Chief Complaint - Chief Complaint Chief Complaint: resp distress, weakness History of Present Illness - History of Present Illness HPI Comment/Other: pt presents with generalized weakness, chills, and trouble breathing, developing over last 1-2 days. of note, pt did have dental procedure done (cavity filling) about 3-4 days ago. pt states that last night he was on the toilet and had trouble getting up and he had to roll onto the floor and crawled back in to this room. denies any falls or head injuries. he has had intermittent bouts of weakness where he felt his legs would give out, but no falls reported. denies dysuria or noting any hematuria. no diarrhea. appetite has been poor. no abdominal pain. vaccinated against flu and vaccinated x 2 against covid. he thinks he is up to date on pneumonia vaccine. no vomiting but some nausea. d enies fevers but does feel chills. History - Past Medical History Cardiovascular: reports: Congestive heart failure, Hypertension, High cholesterol, Deep vein thrombosis, Pulmonary embolism, Atrial fibrillation, Murmur Respiratory: reports: None Neuro: reports: CVA Endocrine/Autoimmune: reports: Type 2 diabetes GI: reports: Colon polyps : reports: Benign prostate hypertrophy HEENT: reports: Chronic hearing loss Psych: reports: None Musculoskeletal: reports: Osteoarthritis, Chronic back pain Derm: reports: None MRSA Hx?: No - Past Surgical History General: reports: Colonoscopy Ortho: reports: Hip replacement, Knee replacement, Other - Family & Social History Family History: Other family: Hypertension - POLST Patient has POLST: No Meds/Allgy - Home Medications Home Medications: Ambulatory Orders Medication Instructions Recorded Confirmed Finasteride 5 mg PO DAILY 10/14/17 05/05/23 Metoprolol Succinate 25 mg PO BID 10/14/17 05/05/23 Tamsulosin [Flomax] 0.4 mg PO DAILY 10/14/17 05/05/23 metFORMIN [Glucophage] 500 mg PO BID 10/14/17 05/05/23 Apixaban [Eliquis] 5 mg PO BID 04/10/23 05/05/23 Atorvastatin Calcium 40 mg PO DAILY 04/10/23 05/05/23 Empagliflozin [Jardiance] 10 mg PO DAILY 04/10/23 05/05/23 Eplerenone [Inspra] 25 mg PO DAILY 04/10/23 05/05/23 Losartan Potassium 100 mg PO DAILY 04/10/23 05/05/23 Potassium Chloride 8 meq PO DAILY 04/10/23 05/05/23 oxyBUTYnin chloride [Oxybutynin 5 mg PO DAILY 04/10/23 05/05/23 Chloride] Cholecalciferol [Vitamin D3] 50 mcg PO DAILY 05/05/23 05/05/23 Elderberry Fruit [Elderberry] 350 mg PO DAILY 05/05/23 05/05/23 - Allergies Allergies/Adverse Reactions: Allergies Allergy/AdvReac Type Severity Reaction Status Date / Time No Known Drug Allergies Allergy Verified 05/05/23 09:44 Review of Systems - Other Findings Other Findings: 14 pt review done with positives per hpi; all others reviewed as negative Exam - Vital Signs Vital Signs: Vital Signs x48h Pulse Resp BP Pulse Ox O2 Flow Rate 05/05/23 19:22 77 18 109/55 L 92 3 05/05/23 16:49 75 24 1.5 05/05/23 15:30 75 20 130/54 L 92 2 05/05/23 15:16 80 20 129/54 L 91 L 05/05/23 14:25 84 22 130/77 94 2 05/05/23 13:18 79 20 91 L 2 05/05/23 12:40 97 22 92 2 05/05/23 12:38 88 24 127/60 85 L 05/05/23 12:30 100 22 128/70 90 L - Physical Exam Comments/Other: gen - aaox3, nad, daughter at bedside heent - eomi, nc/at heart - per rn, tachy lungs - per rn, decreased bibasilar sounds abd - soft, nt, bsx4 per rn msk - no acute trauma noted Conclusion/Plan - Lab Results Fish Bones: 05/05/23 09:51 05/05/23 09:51 - Other Other Results/Comments: pt with - - sepsis elevated wbc, tachy, elevated RR, infection in setting of pna details below - acute, hypoxemic resp failure d/t pna (below) CTA chest NEG for pe --> continue eliquis BID (a-fib) on 2L NC, feeling better supportive mgmt, further details below - pna elevated procalcitonin and cultures POS on rocephin + azithromycin recent dental work may be contributing factor monitor response to antibiotics and adjust as/if needed f/u final cultures results resp viral panel NEG - t2dm with hyperglycemia exacerbated d/t above on ssi, check a1c - a-fib rate in 90s d/t sepsis / infection on eliquis, ivf - microscopic hematuria f/u urine cultures, check renal sono concern for diabetic nephropathy trace proteinuria f/u labs, cultures, replete electrolytes further orders per clinical course
[2023-05-05] MEDS ORDERED: cefTRIAXone 1 GM VIAL ONE (20:14)
[2023-05-05 20:36] LABS: CHOL/HDL RATIO 3.6 (<5.0); CHOLESTEROL 108 mg/dL; HDL CHOLESTEROL 30 mg/dL; LDL CHOLESTEROL,CALCULATED 56 mg/dL; LDL/HDL RATIO 1.9 (<3.6); TRIGLYCERIDES 112 mg/dL; VLDL CHOLESTEROL 22 mg/dL
[2023-05-05 20:45] LABS: ALBUMIN 3.3 g/dL (3.2-5.5); ALBUMIN/GLOBULIN RATIO 0.9 (1.0-2.2); BILIRUBIN,TOTAL 0.7 mg/dL (0.2-1.0); CALCIUM 8.8 mg/dL (8.5-10.3); CREATININE 1.3 mg/dL (0.6-1.2); POTASSIUM 4.1 mmol/L (3.5-5.0); TOTAL PROTEIN 6.8 g/dL (6.7-8.2)
[2023-05-05 20:55] LABS: ESTIMATED AVERAGE GLUCOSE 131 mg/dL (70-100); HEMOGLOBIN A1c% 6.2 % (4.27-6.07)
[2023-05-05] MEDS: guaiFENesin 600 MG TABLET PO SCH (20:57)
[2023-05-05] MEDS: AMOX/CLAV 875 MG/125 MG TABLET PO SCH (20:57)
[2023-05-05] MEDS: INSULIN LISPRO 300 UNIT/3 ML PEN SUBQ SCH (20:57)
[2023-05-05] MEDS: APIXABAN 5 MG TABLET PO SCH (20:57)
[2023-05-05] MEDS: METOPROLOL SUCCINATE 25 MG TABLET PO SCH (20:57)
[2023-05-05] MEDS: SODIUM CHLORIDE 0.9% 1,000 ML IV SCH (21:02)
[2023-05-05] MEDS ORDERED: ACETAMINOPHEN 325 MG TABLET PO PRN (22:12)
[2023-05-06] MEDS: SODIUM CHLORIDE FLUSH 0.9% 10 ML SYRINGE IVP SCH ×3 (00:30→18:04)
[2023-05-06 05:54] LABS: BASOPHILS % (AUTO) 0.3 %; HCT - HEMATOCRIT 35.6 % (42.0-52.0); HGB - HEMOGLOBIN 11.9 g/dL (14.0-18.0); LYMPHOCYTES % (AUTO) 3.7 %; MEAN CORPUSCULAR HEMOGLOBIN 30.7 pg (27.0-31.0); MEAN CORPUSCULAR HGB CONC 33.4 g/dL (32.0-36.0); MEAN PLATELET VOLUME 9.3 fL (7.4-11.4); MONOCYTES % (AUTO) 6.3 %; NEUTROPHILS % (AUTO) 87.9 %; PLT - PLATELET COUNT 126 10^3/uL (130-450); RED BLOOD COUNT 3.87 10^6/uL (4.70-6.10); RED CELL DISTRIBUTION WIDTH 13.1 % (12.0-15.0)
[2023-05-06 06:13] LABS: ABNORMAL LYMPHS % (MANUAL) 0 %
[2023-05-06 06:21] LABS: BAND NEUTROPHILS % (MANUAL) 6 %; LYMPHOCYTES # (MANUAL) 0.6 10^3/uL (1.5-3.5); LYMPHOCYTES % (MANUAL) 3 %; MONOCYTES # (MANUAL) 1.7 10^3/uL (0.0-1.0); NEUTROPHILS # (MANUAL) 18.7 10^3/uL (1.5-6.6)
[2023-05-06 06:22] LABS: DIFFERENTIAL COMMENT MANUAL DIFFERENTIAL; PLATELET ESTIMATE, MANUAL NORMAL (130-450,000) (NORMAL); PLATELET MORPHOLOGY NORMAL APPEARANCE (NORMAL); RBC MORPHOLOGY (MULTIPLE) NORMAL APPEARANCE (NORMAL); WBC MORPHOLOGY (MULTIPLE) NORMAL APPEARANCE (NORMAL)
[2023-05-06] MEDS: ALBUTEROL NEB 2.5 MG/3 ML INH SCH (07:53)
--- NOTE | 2023-05-06 08:09 | XRAY Report ---
PROCEDURE: Chest 1 View X-Ray INDICATIONS: pna TECHNIQUE: One view of the chest was acquired. COMPARISON: None. FINDINGS: Surgical changes and devices: None. Lungs and pleura: Patchy airspace opacity in the left upper lung zone. Mediastinum: Mediastinal contours appear normal. Heart size is enlarged. Bones and chest wall: No suspicious bony lesions. Overlying soft tissues appear unremarkable. IMPRESSION: Patchy airspace opacity in the left upper lung zone. Findings could represent developing infection or atelectasis. Reviewed by: Dipesh Mosley on 05/06/2023 8:08 AM PDT Approved by: Dipesh Mosley on 05/06/2023 8:08 AM PDT Station ID: [id number]
[2023-05-06] MEDS ORDERED: ELDERBERRY FRUIT 350 MG PO SCH (09:00)
[2023-05-06] MEDS: TAMSULOSIN 0.4 MG CAPSULE PO SCH (09:24)
[2023-05-06] MEDS: SACCHAROMYCES BOULARDII 250 MG CAPSULE PO SCH ×2 (09:24→17:26)
[2023-05-06] MEDS: AMOX/CLAV 875 MG/125 MG TABLET PO SCH (09:24)
[2023-05-06] MEDS: LOSARTAN 50 MG TABLET PO SCH (09:24)
[2023-05-06] MEDS: METOPROLOL SUCCINATE 25 MG TABLET PO SCH ×2 (09:24→21:36)
[2023-05-06] MEDS: ATORVASTATIN 40 MG TABLET PO SCH (09:24)
[2023-05-06] MEDS: MULTIVITAMIN TABLET PO SCH (09:24)
[2023-05-06] MEDS: CHOLECALCIFEROL 25 MCG TABLET PO SCH (09:25)
[2023-05-06] MEDS: ASCORBIC ACID 500 MG TABLET PO SCH (09:25)
[2023-05-06] MEDS: FINASTERIDE 5 MG TABLET PO SCH (09:25)
[2023-05-06] MEDS: APIXABAN 5 MG TABLET PO SCH ×2 (09:25→21:34)
[2023-05-06] MEDS: guaiFENesin 600 MG TABLET PO SCH ×2 (09:25→21:34)
[2023-05-06] MEDS: INSULIN LISPRO 300 UNIT/3 ML PEN SUBQ SCH ×4 (09:26→21:36)
[2023-05-06] MEDS: SODIUM CHLORIDE 0.9% 1,000 ML IV SCH (10:34)
[2023-05-06] MEDS ORDERED: ALBUTEROL NEB 2.5 MG/3 ML INH PRN (11:00)
--- NOTE | 2023-05-06 11:38 | PROVIDER PROGRESS NOTE ---
Subjective - Prog Note Date Prog Note Date: 05/06/23 Prog Note Time: 11:34 - Subjective Pt reports feeling: Improved Subjective: Pt reports improvement in his symptoms since yesterday. States he only had chills around 10pm last night, lasting 1 hour and then they subsided. He had a filling for a cavity on 05/02. He didn't get much sleep last night due to being in the hospital, no symptoms that kept him up. He was feeling weak and unable to walk yesterday but since then he has strength back in his legs. He has been doing breathing exercise (spirometry) in his room. Denies fevers, chills, dyspnea, chest pain, palpitations, leg swelling, abdominal pain, nausea, vomiting today. Pt's is also at bedside. She mentions that they are seeing a new dentist and pt was evaluated and was found to have multiple cavities. 1 month ago, he had gone to the dentist for a filling, the dental clinic provided him with 4 abx pills - unsure of which one, which he took all at once and then they took him back for the procedure immediately. Pt states this past , he had an appointment for another filling. This time he told his he needed abx and she gave him left over ciprofloxacin. During this procedure, he was not provided with abx at the clinic nor given a prescription beforehand. 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 Pt is unsure if dentist is aware of his heart valve replacement. also mentions that pt fixes up old meño cars as a hobby and occasionally cuts himself. Pt states that he is a prediabetic and is not taking any diabetic medications. Also, admits to taking metformin and states he was prescribed that for prediabetes. Unsure if he takes jardiance. Objective - Vital Signs/Intake & Output Vital Signs: Vital Signs x48h Temp Pulse Pulse Resp BP Pulse Ox 05/06/23 07:53 95 18 05/06/23 07:27 36.4 C L 94 22 126/70 94 05/06/23 06:05 36.4 C L 78 18 124/64 92 Intake & Output: Intake & Output 05/03/23 05/04/23 05/05/23 05/06/23 23:59 23:59 23:59 23:59 Intake Total 1600 1600 Output Total 200 300 Balance 1400 1300 - Objective General Appearance: positive: No acute distress, Alert, Other (Mildly clammy appearing. [place] [place] - hearing aids .) Eyes Bilateral: positive: Normal inspection, EOMI, Conjunctivae nml Neck: positive: Nml inspection, No JVD Respiratory: positive: No respiratory distress, Breath sounds nml. negative: Wheezes, Rales, Rhonchi Cardiovascular: positive: No murmur, No gallop, Irregularly irregular Peripheral Pulses: 2+ Radial (R), 2+ Radial (L), 2+ Dorsalis pedis (R), 2+ Dorsalis pedis (L) Abdomen: positive: Non-tender, Nml bowel sounds, No distention. negative: Tenderness, Guarding, Rebound, Bruit Back: positive: Nml inspection Skin: positive: Color nml, No rash, Warm Extremities: positive: Nml appearance, No pedal edema Neurologic/Psychiatric: positive: Oriented x3 - Lab Results Fish Bones: 05/06/23 05:46 05/05/23 20:13 Other Labs: Lab Results x24hrs 05/06/23 05/06/23 05/06/23 Range/Units 11:12 07:29 05:46 WBC (4.8-10.8) x10^3/uL RBC (4.70-6.10) 10^6/uL Hgb (14.0-18.0) g/dL Hct (42.0-52.0) % MCV (80.0-94.0) fL MCH (27.0-31.0) pg MCHC (32.0-36.0) g/dL RDW (12.0-15.0) % Plt Count (130-450) 10^3/uL MPV (7.4-11.4) fL Neut # (Auto) Lymph # (Auto) [place] # (Auto) Eos # (Auto) Baso # (Auto) Absolute Nucleated RBC Total Counted Band Neuts % (Manual) (0 - 10) % Abnorm Lymph % (Manual) % Nucleated RBC % Neutrophils # (Manual) (1.5-6.6) 10^3/uL Lymphocytes # (Manual) (1.5-3.5) 10^3/uL Monocytes # (Manual) (0.0-1.0) 10^3/uL Eosinophils # (Manual) (0-0.7) 10^3/uL Basophils # (Manual) (0-0.1) 10^3/uL Differential Comment WBC Morphology (NORMAL) Platelet Estimate (NORMAL) Platelet Morphology (NORMAL) RBC Morph Micro Appear (NORMAL) Sodium (135-145) mmol/L Potassium (3.5-5.0) mmol/L Chloride (101-111) mmol/L Carbon Dioxide (21-32) mmol/L Anion Gap (6-13) BUN (6-20) mg/dL Creatinine (0.6-1.2) mg/dL Estimated GFR (MDRD) (>89) Glucose (70-100) mg/dL POC Whole Bld Glucose 154 H 129 H (70 - 100) mg/dL Estimat Average Glucose (70-100) mg/dL Hemoglobin A1c % (4.27-6.07) % Calcium (8.5-10.3) mg/dL Magnesium 1.8 (1.7-2.8) mg/dL Total Bilirubin (0.2-1.0) mg/dL AST (10-42) IU/L ALT (10-60) IU/L Alkaline Phosphatase (42-121) IU/L Total Protein (6.7-8.2) g/dL Albumin (3.2-5.5) g/dL Globulin (2.1-4.2) g/dL Albumin/Globulin Ratio (1.0-2.2) Triglycerides ( - 149) mg/dL Cholesterol ( - 199) mg/dL LDL Cholesterol, Calc ( - 129) mg/dL VLDL Cholesterol mg/dL HDL Cholesterol (60 - ) mg/dL LDL/HDL Ratio (<3.6) Cholesterol/HDL Ratio (<5.0) Procalcitonin (<0.5) ng/mL Urine Color Urine Clarity (CLEAR) Urine pH (5.0-7.5) PH Ur Specific [place] (1.002-1.030) Urine Protein (NEGATIVE) mg/dL Urine Glucose (UA) (NEGATIVE) mg/dL Urine Ketones (NEGATIVE) mg/dL Urine Occult Blood (NEGATIVE) Urine Nitrite (NEGATIVE) Urine Bilirubin (NEGATIVE) Urine Urobilinogen (NORMAL) E.U./dL Ur Leukocyte Esterase (NEGATIVE) Urine RBC (0-5) /HPF Urine WBC (0-3) /HPF Ur Squamous Epith Cells (<= Few) Urine Bacteria (None Seen) /HPF Urine Mucus Urine Culture Comments Nasal Adenovirus (PCR) Nasal B. parapertussis DNA (PCR) Nasal Coronavir 229E PCR Nasal Coronavir HKU1 PCR Nasal Coronavir NL63 PCR Nasal Coronavir OC43 PCR Nasal Enterovir/Rhinovir PCR Nasal Influenza B PCR Nasal Influenza A PCR Nasal Parainfluen 1 PCR Nasal Parainfluen 2 PCR Nasal Parainfluen 3 PCR Nasal Parainfluen 4 PCR Nasal RSV (PCR) Nasal B.pertussis DNA PCR Nasal C.pneumoniae (PCR) [place]anner Human Metapneumo PCR Nasal M.pneumoniae (PCR) Nasal SARS-CoV-2 (PCR) 05/06/23 05/05/23 05/05/23 Range/Units 05:46 20:48 20:13 WBC 21.0 H (4.8-10.8) x10^3/uL RBC 3.87 L (4.70-6.10) 10^6/uL Hgb 11.9 L (14.0-18.0) g/dL Hct 35.6 L (42.0-52.0) % MCV 92.0 (80.0-94.0) fL MCH 30.7 (27.0-31.0) pg MCHC 33.4 (32.0-36.0) g/dL RDW 13.1 (12.0-15.0) % Plt Count 126 L (130-450) 10^3/uL MPV 9.3 (7.4-11.4) fL Neut # (Auto) Not Reportable Lymph # (Auto) Not Reportable [place] # (Auto) Not Reportable Eos # (Auto) Not Reportable Baso # (Auto) Not Reportable Absolute Nucleated RBC Not Reportable Total Counted 100 Band Neuts % (Manual) 6 (0 - 10) % Abnorm Lymph % (Manual) 0 % Nucleated RBC % Not Reportable Neutrophils # (Manual) 18.7 H (1.5-6.6) 10^3/uL Lymphocytes # (Manual) 0.6 L (1.5-3.5) 10^3/uL Monocytes # (Manual) 1.7 H (0.0-1.0) 10^3/uL Eosinophils # (Manual) 0.0 (0-0.7) 10^3/uL Basophils # (Manual) 0.0 (0-0.1) 10^3/uL Differential Comment MANUAL DIFFERENTIAL WBC Morphology NORMAL APPEARANCE (NORMAL) Platelet Estimate NORMAL (130-450,000) (NORMAL) Platelet Morphology NORMAL APPEARANCE (NORMAL) RBC Morph Micro Appear NORMAL APPEARANCE (NORMAL) Sodium 136 (135-145) mmol/L Potassium 4.1 (3.5-5.0) mmol/L Chloride 104 (101-111) mmol/L Carbon Dioxide 24 (21-32) mmol/L Anion Gap 8.0 (6-13) BUN 28 H (6-20) mg/dL Creatinine 1.3 H (0.6-1.2) mg/dL Estimated GFR (MDRD) 53 L (>89) Glucose 186 H (70-100) mg/dL POC Whole Bld Glucose 154 H (70 - 100) mg/dL Estimat Average Glucose (70-100) mg/dL Hemoglobin A1c % (4.27-6.07) % Calcium 8.8 (8.5-10.3) mg/dL Magnesium (1.7-2.8) mg/dL Total Bilirubin 0.7 (0.2-1.0) mg/dL AST 31 (10-42) IU/L ALT 18 (10-60) IU/L Alkaline Phosphatase 70 (42-121) IU/L Total Protein 6.8 (6.7-8.2) g/dL Albumin 3.3 (3.2-5.5) g/dL Globulin 3.5 (2.1-4.2) g/dL Albumin/Globulin Ratio 0.9 L (1.0-2.2) Triglycerides ( - 149) mg/dL Cholesterol ( - 199) mg/dL LDL Cholesterol, Calc ( - 129) mg/dL VLDL Cholesterol mg/dL HDL Cholesterol (60 - ) mg/dL LDL/HDL Ratio (<3.6) Cholesterol/HDL Ratio (<5.0) Procalcitonin (<0.5) ng/mL Urine Color Urine Clarity (CLEAR) Urine pH (5.0-7.5) PH Ur Specific [place] (1.002-1.030) Urine Protein (NEGATIVE) mg/dL Urine Glucose (UA) (NEGATIVE) mg/dL Urine Ketones (NEGATIVE) mg/dL Urine Occult Blood (NEGATIVE) Urine Nitrite (NEGATIVE) Urine Bilirubin (NEGATIVE) Urine Urobilinogen (NORMAL) E.U./dL Ur Leukocyte Esterase (NEGATIVE) Urine RBC (0-5) /HPF Urine WBC (0-3) /HPF Ur Squamous Epith Cells (<= Few) Urine Bacteria (None Seen) /HPF Urine Mucus Urine Culture Comments Nasal Adenovirus (PCR) Nasal B. parapertussis DNA (PCR) Nasal Coronavir 229E PCR Nasal Coronavir HKU1 PCR Nasal Coronavir NL63 PCR Nasal Coronavir OC43 PCR Nasal Enterovir/Rhinovir PCR Nasal Influenza B PCR Nasal Influenza A PCR Nasal Parainfluen 1 PCR Nasal Parainfluen 2 PCR Nasal Parainfluen 3 PCR Nasal Parainfluen 4 PCR Nasal RSV (PCR) Nasal B.pertussis DNA PCR Nasal C.pneumoniae (PCR) [place]anner Human Metapneumo PCR Nasal M.pneumoniae (PCR) Nasal SARS-CoV-2 (PCR) 05/05/23 05/05/23 05/05/23 Range/Units 20:13 20:13 12:20 WBC (4.8-10.8) x10^3/uL RBC (4.70-6.10) 10^6/uL Hgb (14.0-18.0) g/dL Hct (42.0-52.0) % MCV (80.0-94.0) fL MCH (27.0-31.0) pg MCHC (32.0-36.0) g/dL RDW (12.0-15.0) % Plt Count (130-450) 10^3/uL MPV (7.4-11.4) fL Neut # (Auto) Lymph # (Auto) [place] # (Auto) Eos # (Auto) Baso # (Auto) Absolute Nucleated RBC Total Counted Band Neuts % (Manual) (0 - 10) % Abnorm Lymph % (Manual) % Nucleated RBC % Neutrophils # (Manual) (1.5-6.6) 10^3/uL Lymphocytes # (Manual) (1.5-3.5) 10^3/uL Monocytes # (Manual) (0.0-1.0) 10^3/uL Eosinophils # (Manual) (0-0.7) 10^3/uL Basophils # (Manual) (0-0.1) 10^3/uL Differential Comment WBC Morphology (NORMAL) Platelet Estimate (NORMAL) Platelet Morphology (NORMAL) RBC Morph Micro Appear (NORMAL) Sodium (135-145) mmol/L Potassium (3.5-5.0) mmol/L Chloride (101-111) mmol/L Carbon Dioxide (21-32) mmol/L Anion Gap (6-13) BUN (6-20) mg/dL Creatinine (0.6-1.2) mg/dL Estimated GFR (MDRD) (>89) Glucose (70-100) mg/dL POC Whole Bld Glucose (70 - 100) mg/dL Estimat Average Glucose 131 H (70-100) mg/dL Hemoglobin A1c % 6.2 H (4.27-6.07) % Calcium (8.5-10.3) mg/dL Magnesium (1.7-2.8) mg/dL Total Bilirubin (0.2-1.0) mg/dL AST (10-42) IU/L ALT (10-60) IU/L Alkaline Phosphatase (42-121) IU/L Total Protein (6.7-8.2) g/dL Albumin (3.2-5.5) g/dL Globulin (2.1-4.2) g/dL Albumin/Globulin Ratio (1.0-2.2) Triglycerides 112 ( - 149) mg/dL Cholesterol 108 ( - 199) mg/dL LDL Cholesterol, Calc 56 ( - 129) mg/dL VLDL Cholesterol 22 mg/dL HDL Cholesterol 30 L (60 - ) mg/dL LDL/HDL Ratio 1.9 (<3.6) Cholesterol/HDL Ratio 3.6 (<5.0) Procalcitonin (<0.5) ng/mL Urine Color DARK YELLOW Urine Clarity CLEAR (CLEAR) Urine pH 5.5 (5.0-7.5) PH Ur Specific [place] 1.025 (1.002-1.030) Urine Protein TRACE (NEGATIVE) mg/dL Urine Glucose (UA) >=1000 H (NEGATIVE) mg/dL Urine Ketones TRACE (NEGATIVE) mg/dL Urine Occult Blood SMALL H (NEGATIVE) Urine Nitrite NEGATIVE (NEGATIVE) Urine Bilirubin NEGATIVE (NEGATIVE) Urine Urobilinogen 0.2 (NORMAL) (NORMAL) E.U./dL Ur Leukocyte Esterase NEGATIVE (NEGATIVE) Urine RBC 6-10 H (0-5) /HPF Urine WBC 0-3 (0-3) /HPF Ur Squamous Epith Cells RARE Squamous (<= Few) Urine Bacteria Rare (None Seen) /HPF Urine Mucus Few Strands Urine Culture Comments NOT INDICATED Nasal Adenovirus (PCR) Nasal B. parapertussis DNA (PCR) Nasal Coronavir 229E PCR Nasal Coronavir HKU1 PCR Nasal Coronavir NL63 PCR Nasal Coronavir OC43 PCR Nasal Enterovir/Rhinovir PCR Nasal Influenza B PCR Nasal Influenza A PCR Nasal Parainfluen 1 PCR Nasal Parainfluen 2 PCR Nasal Parainfluen 3 PCR Nasal Parainfluen 4 PCR Nasal RSV (PCR) Nasal B.pertussis DNA PCR Nasal C.pneumoniae (PCR) Tanner Human Metapneumo PCR Nasal M.pneumoniae (PCR) Nasal SARS-CoV-2 (PCR) 05/05/23 05/05/23 Range/Units 11:08 09:50 WBC (4.8-10.8) x10^3/uL RBC (4.70-6.10) 10^6/uL Hgb (14.0-18.0) g/dL Hct (42.0-52.0) % MCV (80.0-94.0) fL MCH (27.0-31.0) pg MCHC (32.0-36.0) g/dL RDW (12.0-15.0) % Plt Count (130-450) 10^3/uL MPV (7.4-11.4) fL Neut # (Auto) Lymph # (Auto) [place] # (Auto) Eos # (Auto) Baso # (Auto) Absolute Nucleated RBC Total Counted Band Neuts % (Manual) (0 - 10) % Abnorm Lymph % (Manual) % Nucleated RBC % Neutrophils # (Manual) (1.5-6.6) 10^3/uL Lymphocytes # (Manual) (1.5-3.5) 10^3/uL Monocytes # (Manual) (0.0-1.0) 10^3/uL Eosinophils # (Manual) (0-0.7) 10^3/uL Basophils # (Manual) (0-0.1) 10^3/uL Differential Comment WBC Morphology (NORMAL) Platelet Estimate (NORMAL) Platelet Morphology (NORMAL) RBC Morph Micro Appear (NORMAL) Sodium (135-145) mmol/L Potassium (3.5-5.0) mmol/L Chloride (101-111) mmol/L Carbon Dioxide (21-32) mmol/L Anion Gap (6-13) BUN (6-20) mg/dL Creatinine (0.6-1.2) mg/dL Estimated GFR (MDRD) (>89) Glucose (70-100) mg/dL POC Whole Bld Glucose (70 - 100) mg/dL Estimat Average Glucose (70-100) mg/dL Hemoglobin A1c % (4.27-6.07) % Calcium (8.5-10.3) mg/dL Magnesium (1.7-2.8) mg/dL Total Bilirubin (0.2-1.0) mg/dL AST (10-42) IU/L ALT (10-60) IU/L Alkaline Phosphatase (42-121) IU/L Total Protein (6.7-8.2) g/dL Albumin (3.2-5.5) g/dL Globulin (2.1-4.2) g/dL Albumin/Globulin Ratio (1.0-2.2) Triglycerides ( - 149) mg/dL Cholesterol ( - 199) mg/dL LDL Cholesterol, Calc ( - 129) mg/dL VLDL Cholesterol mg/dL HDL Cholesterol (60 - ) mg/dL LDL/HDL Ratio (<3.6) Cholesterol/HDL Ratio (<5.0) Procalcitonin 12.46 H* (<0.5) ng/mL Urine Color Urine Clarity (CLEAR) Urine pH (5.0-7.5) PH Ur Specific [place] (1.002-1.030) Urine Protein (NEGATIVE) mg/dL Urine Glucose (UA) (NEGATIVE) mg/dL Urine Ketones (NEGATIVE) mg/dL Urine Occult Blood (NEGATIVE) Urine Nitrite (NEGATIVE) Urine Bilirubin (NEGATIVE) Urine Urobilinogen (NORMAL) E.U./dL Ur Leukocyte Esterase (NEGATIVE) Urine RBC (0-5) /HPF Urine WBC (0-3) /HPF Ur Squamous Epith Cells (<= Few) Urine Bacteria (None Seen) /HPF Urine Mucus Urine Culture Comments Nasal Adenovirus (PCR) NOT DETECTED Nasal B. parapertussis DNA (PCR) NOT DETECTED Nasal Coronavir 229E PCR NOT DETECTED Nasal Coronavir HKU1 PCR NOT DETECTED Nasal Coronavir NL63 PCR NOT DETECTED Nasal Coronavir OC43 PCR NOT DETECTED Nasal Enterovir/Rhinovir PCR NOT DETECTED Nasal Influenza B PCR NOT DETECTED Nasal Influenza A PCR NOT DETECTED Nasal Parainfluen 1 PCR NOT DETECTED Nasal Parainfluen 2 PCR NOT DETECTED Nasal Parainfluen 3 PCR NOT DETECTED Nasal Parainfluen 4 PCR NOT DETECTED Nasal RSV (PCR) NOT DETECTED Nasal B.pertussis DNA PCR NOT DETECTED Nasal C.pneumoniae (PCR) NOT DETECTED [place]anner Human Metapneumo PCR NOT DETECTED Nasal M.pneumoniae (PCR) NOT DETECTED Nasal SARS-CoV-2 (PCR) NOT DETECTED - Diagnostic Imaging Diagnostic Imaging Results: positive: Final report reviewed Diagnostic Imaging Comments: CXR 05/05 negative for cardiopulmonary cause. CTA 05/15 shows no signs of PE but there is diffuse groundglass opacities of the dependent portions of the bilateral hemithoraces - nonspecific findings that may represent atelectasis/infection/inflammatory processes, no focal consolidation. CXR 05/06 revealed "Patchy airspace opacity of the left upper lung zone. Findings could represent developing infection/atelectasis." Assessment/Plan - Problem List (1) Streptococcal bacteremia Impression: Pt presented in the ED yesterday for fatigue, weakness, dyspnea. He was tachycardic in the ED with elevated WBC of 12.4. Today, WBC have increased to 20.0 with left shift of 18.7. Blood cultures are positive for strep. Plan: Stop IV Ceftriaxone and PO Augmentin. Start IV ampicillin-sulbactam. Will order blood cultures tomorrow to ensure negativity. Await species and sensitives for blood culture. Echo ordered since his blood culture shows gram positive cocci - evaluating for endocarditis. Daily CBC to monitor WBC trend. (2) Pneumonia Impression: Pt presented in the ED for generalized weakness and dyspnea. Also reported cough, congestion and other URI symptoms in the ED. CXR 05/05 negative for cardiopulmonary cause. CTA 05/15 shows no signs of PE but there is diffuse groundglass opacities of the dependent portions of the bilateral hemithoraces - nonspecific findings that may represent atelectasis/infection/inflammatory processes, no focal consolidation. CXR 05/06 revealed "Patchy airspace opacity of the left upper lung zone. Findings could represent developing infection/atelectasis" per radiologist. Today, he denies fevers, chills, dyspnea. On exam, lungs are clear to auscultation. Plan: Started IV ampicillin-sulbactam. Qualifiers: Pneumonia type: due to unspecified organism Laterality: left Lung location: upper lobe of lung Qualified Code(s): J18.9 - Pneumonia, unspecified organism (3) Hypoxia Impression: Pt presented with dyspnea in the ED yesterday. Sating 86-88% RA in the ED. Placed on 2L O2. CXR negative for cardiopulmonary cause. CTA shows no signs of PE but there is diffuse groundglass opacities of the dependent portions of the bilateral hemithoraces - nonspecific findings that may represent atelectasis/infection/inflammatory processes, no focal consolidation. Today, he reports no dyspnea, chest pain or leg swelling. Sating 92-94% RA. Plan: Monitor O2 saturation and place on supplementary oxygen if needed. (4) Atrial fibrillation Impression: Pt has a hx of a-fib on metoprolol and eliquis. HR stable today in the 90s. On exam, he has an irregular rhythm but regular rate. Plan: Continue home meds - metoprolol 25mg bid and eliquis 5mg bid. Qualifiers: Atrial fibrillation type: unspecified chronic Qualified Code(s): I48.20 - Chronic atrial fibrillation, unspecified; I48.2 - Chronic atrial fibrillation (5) Type 2 diabetes mellitus Impression: Pt states he is not a diabetic and was classified as prediabetic. Pt's reports that he is borderline diabetic. Both state that he is on metformin for his prediabetes. Both are unsure if he is taking jardiance. He does not have a special diet at home. Pt's POC blood glucose has been elevated today at 129, 154 and 128. Plan: POC glucose finger sticks Check A1c Insulin sliding scale Placed on a diabetic diet. Will provide diabetic education. 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 Pt did not share that he has a hx of TAVR. When asked if he has a heart conditions, he states no. Later states he has a heart valve replaced in the past and has a-fib. The EMR does not have a TAVR procedure listed in his hx. The ER was also not aware of this hx. He is unsure if his dentist is aware that he has this hx. Pt regularly sees his electrical prospecting engineer Dr. Turner at [facility] in [place], next appointment in May. He remembers going to see his electrical prospecting engineer for dyspnea recently and his reports that Dr. Turner started 3 new medications, both unsure of which ones. Plan: Obtain records from Dr. Turner Echo ordered to rule out endocarditis. (7) Sepsis Impression: In the ED, pt was found to have elevated wbc, tachy, elevated RR, infection in setting of pna. Today, pt denies fevers, chills, dyspnea, chest pain, cough. His HR has been stable at 78, 94 and 86. No fevers overnight and throughout the day. His BP has been WNL overnight and throughout the day. On exam, his lungs are clear to auscultation. Sepsis resolved. Plan: Continue to monitor vital signs. Qualifiers: Sepsis type: sepsis due to unspecified organism Sepsis acute organ dysfunction status: unspecified Qualified Code(s): A41.9 - Sepsis, unspecified organism
[2023-05-06] MEDS: EPLERENONE 25 MG PO SCH (14:03)
--- NOTE | 2023-05-06 15:26 | PHARMACY PROGRESS NOTE ---
- Best Possible Medication History Admit Date and Time: 05/06/23 1031 Processed by: Pharmacy Medication History completed: Yes Secondary Source(s): Pharmacy records, Insurance records As the person ultimately responsible for medication therapy, providers are able to order a medication from an existing home medication list in [facility] via the "Reconcile Routine" prior to Confirmation of that medication by gwot ia/ilo intelligence support. Such practice is discouraged except when the physician, in their clinical judgment, deems that a medical need exists for a medication without regard to previous use.
--- NOTE | 2023-05-06 16:48 | Ultrasound Report ---
PROCEDURE: Retroperitoneal INDICATIONS: diabetic nephropathy TECHNIQUE: Real-time scanning was performed of the retroperitoneal organs, with image documentation. COMPARISON: None. FINDINGS: Kidneys: Kidneys are normal in size. Right kidney measures 11.3 cm long; left kidney measures 12.1 cm long. Right renal cortical thickness is 1.7 cm; left renal cortical thickness is 2. cm. No joy d masses, hydronephrosis, or nephrolithiasis. Bladder: Pre-void bladder volume is 64 mL. The patient did not void. Pre-void images demonstrate n o intraluminal masses or stones. On pre-void images, neither ureteral jets are noted with color Dopp ler interrogation. (Of note, ureteral jets may not be detectable in up to 25% of cases due to insuff icient differences in specific gravity between ureteral and bladder urine). Miscellaneous: No free abdominal fluid. IMPRESSION: 1. Kidneys are normal in size and echotexture. 2. No hydronephrosis. Reviewed by: Padmaja Yang MD on 05/06/2023 4:47 PM PDT Approved by: Padmaja Yang MD on 05/06/2023 4:47 PM PDT Station ID: [id number]
[2023-05-06] MEDS: AMPICILLIN/SULBACTAM 3 GM in SODIUM CHLORIDE 0.9% MINIBAG 100 ML IV SCH (18:03)
[2023-05-06] MEDS ORDERED: cefTRIAXone 1 GM in SODIUM CHLORIDE 0.9% MINIBAG 100 ML IV SCH (21:00)
[2023-05-06] MEDS: AZITHROMYCIN INJ 500 MG in SODIUM CHLORIDE 0.9% 250 ML IV SCH (21:34)
[2023-05-07] MEDS: AMPICILLIN/SULBACTAM 3 GM in SODIUM CHLORIDE 0.9% MINIBAG 100 ML IV SCH ×5 (00:05→23:37)
[2023-05-07] MEDS: SODIUM CHLORIDE FLUSH 0.9% 10 ML SYRINGE IVP SCH ×3 (00:06→16:45)
[2023-05-07] MEDS: SODIUM CHLORIDE 0.9% 1,000 ML IV SCH (03:08)
[2023-05-07 07:16] LABS: BASOPHILS % (AUTO) 0.2 %; EOSINOPHILS % (AUTO) 0.1 %; HCT - HEMATOCRIT 32.3 % (42.0-52.0); HGB - HEMOGLOBIN 10.6 g/dL (14.0-18.0); LYMPHOCYTES % (AUTO) 10.6 %; MEAN CORPUSCULAR HGB CONC 32.8 g/dL (32.0-36.0); MEAN CORPUSCULAR VOLUME 94.4 fL (80.0-94.0); MONOCYTES % (AUTO) 9.9 %; NEUTROPHILS % (AUTO) 77.7 %; PLT - PLATELET COUNT 126 10^3/uL (130-450); RED BLOOD COUNT 3.42 10^6/uL (4.70-6.10); RED CELL DISTRIBUTION WIDTH 13.2 % (12.0-15.0); WHITE BLOOD COUNT 16.1 x10^3/uL (4.8-10.8)
[2023-05-07 07:21] LABS: SLIDE REVIEW? Indicated
[2023-05-07 07:22] LABS: ABNORMAL LYMPHS % (MANUAL) 0 %
[2023-05-07 07:47] LABS: BAND NEUTROPHILS % (MANUAL) 8 %; DIFFERENTIAL COMMENT MANUAL DIFFERENTIAL; LYMPHOCYTES # (MANUAL) 1.8 10^3/uL (1.5-3.5); LYMPHOCYTES % (MANUAL) 11 %; MONOCYTES # (MANUAL) 1.1 10^3/uL (0.0-1.0); NEUTROPHILS # (MANUAL) 13.2 10^3/uL (1.5-6.6)
[2023-05-07] MEDS: INSULIN LISPRO 300 UNIT/3 ML PEN SUBQ SCH ×4 (08:37→21:23)
[2023-05-07] MEDS: SOLIFENACIN SUCCINATE 5 MG TABLET PO SCH (08:38)
[2023-05-07] MEDS: SACCHAROMYCES BOULARDII 250 MG CAPSULE PO SCH ×2 (08:38→17:05)
[2023-05-07] MEDS: TAMSULOSIN 0.4 MG CAPSULE PO SCH (08:38)
[2023-05-07] MEDS: guaiFENesin 600 MG TABLET PO SCH ×2 (08:38→21:24)
[2023-05-07] MEDS: ATORVASTATIN 40 MG TABLET PO SCH (08:38)
[2023-05-07] MEDS: LOSARTAN 50 MG TABLET PO SCH (08:38)
[2023-05-07] MEDS: APIXABAN 5 MG TABLET PO SCH ×2 (08:39→21:24)
[2023-05-07] MEDS: ASCORBIC ACID 500 MG TABLET PO SCH (08:39)
[2023-05-07] MEDS: CHOLECALCIFEROL 25 MCG TABLET PO SCH (08:39)
[2023-05-07] MEDS: FINASTERIDE 5 MG TABLET PO SCH (08:39)
[2023-05-07] MEDS: MULTIVITAMIN TABLET PO SCH (08:39)
[2023-05-07] MEDS: METOPROLOL SUCCINATE 25 MG TABLET PO SCH (08:39)
--- NOTE | 2023-05-07 11:31 | XRAY Report ---
PROCEDURE: Chest 1 View X-Ray INDICATIONS: SOB TECHNIQUE: One view of the chest was acquired. COMPARISON: Chest x-ray 05/06/2023 FINDINGS: Surgical changes and devices: None. Lungs and pleura: Mild increased vascularity compared to prior exam. Mediastinum: Mediastinal contours appear normal. Heart size is enlarged. Bones and chest wall: No suspicious bony lesions. Overlying soft tissues appear unremarkable. IMPRESSION: Increased vascularity compared to prior exam suggestive of edema. Reviewed by: Tereza Parrish MD on 05/07/2023 11:30 AM PDT Approved by: Tereza Parrish MD on 05/07/2023 11:30 AM PDT Station ID: [id number]
--- NOTE | 2023-05-07 11:59 | PROVIDER PROGRESS NOTE ---
Subjective - Prog Note Date Prog Note Date: 05/07/23 Prog Note Time: 11:55 - Subjective Pt reports feeling: Improved Subjective: Don reports feeling much improved since admission and even yesterday. States he got adequate and quality sleep lat night. The night prior was a little rough because of how he was feeling and all the hospital disturbances. Reports he has some dyspnea yesterday but has subsided today. Also reports a minor cough that has improved. Denies fevers, chills, rhinorrhea, congestion, sore throat, dyspnea, chest pain, abdominal pain, nausea, vomiting, diarrhea today. at bedside and explains that pt was started on 5 medications by his sql ssrs developer at his last visit and not 3. She has provided a list - which is in the EMR. Objective - Vital Signs/Intake & Output Reviewed Vital Signs: Yes Vital Signs: Vital Signs x48h Temp Pulse Resp BP BP Pulse Ox 05/07/23 08:41 36.4 C L 94 18 109/57 L 95 05/07/23 07:55 36.5 C 73 18 135/73 H 95 Intake & Output: Intake & Output 05/04/23 05/05/23 05/06/23 05/07/23 23:59 23:59 23:59 23:59 Intake Total 1600 3767.50 652.5 Output Total 200 775 350 Balance 1400 2992.50 302.5 - Objective General Appearance: positive: No acute distress, Alert, Other (Sitting comfor table in a chair, watching TV and awaiting lunch.) Eyes Bilateral: positive: Normal inspection, EOMI, No lid inflammation, Conjunctivae nml, No scleral icterus Neck: positive: Nml inspection, No JVD Respiratory: positive: No respiratory distress, Breath sounds nml. negative: Wheezes, Rales, Rhonchi Cardiovascular: positive: Irregularly irregular (Irregular rhythm but controlled rate.). negative: No murmur, No gallop, Friction rub Peripheral Pulses: 2+ Radial (R), 2+ Radial (L) Abdomen: positive: Non-tender, Nml bowel sounds, No distention. negative: Guarding, Rebound, Bruit Back: positive: Nml inspection Skin: positive: Color nml, No rash, Warm, Dry Extremities: positive: No pedal edema Neurologic/Psychiatric: positive: Oriented x3 - Lab Results Fish Bones: 05/07/23 06:08 05/05/23 20:13 Other Labs: Lab Results x24hrs 05/07/23 05/07/23 05/07/23 Range/Units 11:40 07:45 06:08 WBC (4.8-10.8) x10^3/uL RBC (4.70-6.10) 10^6/uL Hgb (14.0-18.0) g/dL Hct (42.0-52.0) % MCV (80.0-94.0) fL MCH (27.0-31.0) pg MCHC (32.0-36.0) g/dL RDW (12.0-15.0) % Plt Count (130-450) 10^3/uL MPV (7.4-11.4) fL Neut # (Auto) Lymph # (Auto) [place] # (Auto) Eos # (Auto) Baso # (Auto) Absolute Nucleated RBC Total Counted Band Neuts % (Manual) (0 - 10) % Abnorm Lymph % (Manual) % Nucleated RBC % Neutrophils # (Manual) (1.5-6.6) 10^3/uL Lymphocytes # (Manual) (1.5-3.5) 10^3/uL Monocytes # (Manual) (0.0-1.0) 10^3/uL Eosinophils # (Manual) (0-0.7) 10^3/uL Basophils # (Manual) (0-0.1) 10^3/uL Differential Comment Manual Slide Review POC Whole Bld Glucose 133 H 110 H (70 - 100) mg/dL Procalcitonin 14.90 H* (<0.5) ng/mL 05/07/23 05/06/23 05/06/23 Range/Units 06:08 20:40 16:40 WBC 16.1 H (4.8-10.8) x10^3/uL RBC 3.42 L (4.70-6.10) 10^6/uL Hgb 10.6 L (14.0-18.0) g/dL Hct 32.3 L (42.0-52.0) % MCV 94.4 H (80.0-94.0) fL MCH 31.0 (27.0-31.0) pg MCHC 32.8 (32.0-36.0) g/dL RDW 13.2 (12.0-15.0) % Plt Count 126 L (130-450) 10^3/uL MPV 10.0 (7.4-11.4) fL Neut # (Auto) Not Reportable Lymph # (Auto) Not Reportable [place] # (Auto) Not Reportable Eos # (Auto) Not Reportable Baso # (Auto) Not Reportable Absolute Nucleated RBC Not Reportable Total Counted 100 Band Neuts % (Manual) 8 (0 - 10) % Abnorm Lymph % (Manual) 0 % Nucleated RBC % Not Reportable Neutrophils # (Manual) 13.2 H (1.5-6.6) 10^3/uL Lymphocytes # (Manual) 1.8 (1.5-3.5) 10^3/uL Monocytes # (Manual) 1.1 H (0.0-1.0) 10^3/uL Eosinophils # (Manual) 0.0 (0-0.7) 10^3/uL Basophils # (Manual) 0.0 (0-0.1) 10^3/uL Differential Comment MANUAL DIFFERENTIAL Manual Slide Review Indicated POC Whole Bld Glucose 136 H 128 H (70 - 100) mg/dL Procalcitonin (<0.5) ng/mL ABX Reporting Has patient been on IV antibiotics over the past 48 hours?: Yes Assessment/Plan - Problem List (1) Streptococcal bacteremia Impression: Pt presented in the ED yesterday for fatigue, weakness, dyspnea. He was tachycardic in the ED with elevated WBC of 12.4. All labs reviewed today. Today, WBC have decreased from 20.0 to 16.1. His procalcitonin increased to 14.90. Blood cultures are positive for strep. Echo 05/07 negative for endocarditis or vegetations. Plan: Continue IV ampicillin-sulbactam. Blood cultures ordered. Await species and sensitives for blood culture. Daily CBC to monitor WBC trend. Daily procalcitonin to monitor trend to watch for sepsis. Educated pt on all his diagnoses with pt's at bedside. Potential discharge tomorrow depending on blood cxs and sensitives. (2) Pneumonia Impression: Pt presented in the ED for generalized weakness and dyspnea. Also reported cough, congestion and other URI symptoms in the ED. CXR 05/05 negative for cardiopulmonary cause. CTA 05/15 shows no signs of PE but there is diffuse groundglass opacities of the dependent portions of the bilateral hemithoraces - nonspecific findings that may represent atelectasis/infection/inflammatory processes, no focal consolidation. CXR 05/06 revealed "Patchy airspace opacity of the left upper lung zone. Findings could represent developing infection/atelectasis" per radiologist. Today, he denies fevers, chills, dyspnea. On exam, lungs are clear to auscultation. Plan: Continue IV ampicillin-sulbactam. Qualifiers: Pneumonia type: due to unspecified organism Laterality: left Lung location: upper lobe of lung Qualified Code(s): J18.9 - Pneumonia, unspecified organism (3) Hypoxia Impression: Pt presented with dyspnea in the ED yesterday. Sating 86-88% RA in the ED. Placed on 2L O2. CXR negative for cardiopulmonary cause. CTA shows no signs of PE but there is diffuse groundglass opacities of the dependent portions of the bilateral hemithoraces - nonspecific findings that may represent atelectasis/infection/inflammatory processes, no focal consolidation. Today, he reports no dyspnea, chest pain or leg swelling. Sating 95% RA. CXR 05/07 suggestive of pulmonary edema. Plan: Stop IVF and start home torsemide due to pulmonary edema. Monitor O2 saturation and place on supplementary oxygen if needed. (4) Atrial fibrillation Impression: Pt has a hx of a-fib on metoprolol and eliquis. HR stable today in the 90s. On exam, he has an irregular rhythm but controlled rate. Plan: Continue home meds - metoprolol 25mg bid and eliquis 5mg bid. Qualifiers: Atrial fibrillation type: unspecified chronic Qualified Code(s): I48.20 - Chronic atrial fibrillation, unspecified; I48.2 - Chronic atrial fibrillation (5) Type 2 diabetes mellitus Impression: Pt states he is not a diabetic and was classified as prediabetic. Pt's reports that he is borderline diabetic. Both state that he is on metformin for his prediabetes. Both are unsure if he is taking jardiance. He does not have a special diet at home. Pt's POC blood glucose today have been 110 and 133. A1C=6.1 Plan: POC glucose finger sticks. Insulin sliding scale Placed on a diabetic diet. Provided diabetic education. Including diet control and medications. 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 Pt did not share that he has a hx of TAVR. When asked if he has a heart conditions, he states no. Later states he has a heart valve replaced in the past and has a-fib. The EMR does not have a TAVR procedure listed in his hx. The ER was also not aware of this hx. He is unsure if his dentist is aware that he has this hx. Pt regularly sees his sql ssrs developer Dr. Turner at [facility] in [place], next appointment in May. He remembers going to see his sql ssrs developer for dyspnea recently and his reports that Dr. Turner started 3 new medications, both unsure of which ones. clarifies that there were 5 medications added. Reconciled with pharmacy. Obtained Dr. Tse note on last visit with pt and reviewed. Echo 05/07 negative for endocarditis or vegetations. Plan: Educated pt and pt's at bedside about lifetime prophylactic tx needed before procedures. (7) Sepsis Impression: In the ED, pt was found to have elevated wbc, tachy, elevated RR, infection in setting of pna. Today, pt denies fevers, chills, dyspnea, chest pain, cough. His HR has been stable at 78, 94 and 86. No fevers overnight and throughout the day. His BP has been WNL overnight and throughout the day. On exam, his lungs are clear to auscultation. Sepsis resolved. Plan: Continue to monitor vital signs. Qualifiers: Sepsis type: sepsis due to unspecified organism Sepsis acute organ dysfunction status: unspecified Qualified Code(s): A41.9 - Sepsis, unspecified organism
[2023-05-07] MEDS: EPLERENONE 25 MG PO SCH (15:46)
[2023-05-07] MEDS: SPIRONOLACTONE 25 MG TABLET PO SCH (16:44)
[2023-05-07] MEDS: metFORMIN 500 MG TABLET PO SCH (17:06)
[2023-05-07] MEDS: AZITHROMYCIN INJ 500 MG in SODIUM CHLORIDE 0.9% 250 ML IV SCH (21:23)
[2023-05-07] MEDS: METOPROLOL TARTRATE 50 MG TABLET PO SCH (21:24)
[2023-05-08] MEDS: SODIUM CHLORIDE FLUSH 0.9% 10 ML SYRINGE IVP SCH ×2 (00:07→08:10)
[2023-05-08] MEDS: AMPICILLIN/SULBACTAM 3 GM in SODIUM CHLORIDE 0.9% MINIBAG 100 ML IV SCH ×2 (05:03→11:50)
[2023-05-08 05:27] LABS: BASOPHILS % (AUTO) 0.3 %; EOSINOPHILS # (AUTO) 0.1 10^3/uL (0.0-0.7); EOSINOPHILS % (AUTO) 1.2 %; HCT - HEMATOCRIT 32.4 % (42.0-52.0); HGB - HEMOGLOBIN 10.9 g/dL (14.0-18.0); LYMPHOCYTES # (AUTO) 1.5 10^3/uL (1.5-3.5); LYMPHOCYTES % (AUTO) 14.3 %; MEAN CORPUSCULAR HEMOGLOBIN 30.9 pg (27.0-31.0); MEAN CORPUSCULAR HGB CONC 33.6 g/dL (32.0-36.0); MEAN CORPUSCULAR VOLUME 91.8 fL (80.0-94.0); MEAN PLATELET VOLUME 9.8 fL (7.4-11.4); MONOCYTES # (AUTO) 1.2 10^3/uL (0.0-1.0); MONOCYTES % (AUTO) 11.1 %; NEUTROPHILS # (AUTO) 7.6 10^3/uL (1.5-6.6); NEUTROPHILS % (AUTO) 72.2 %; PLT - PLATELET COUNT 150 10^3/uL (130-450); RED BLOOD COUNT 3.53 10^6/uL (4.70-6.10); RED CELL DISTRIBUTION WIDTH 13.2 % (12.0-15.0); WHITE BLOOD COUNT 10.5 x10^3/uL (4.8-10.8)
[2023-05-08] MEDS ORDERED: POTASSIUM CHLORIDE 10 MEQ CAPSULE PO SCH (08:00)
[2023-05-08] MEDS: INSULIN LISPRO 300 UNIT/3 ML PEN SUBQ SCH ×2 (08:04→11:51)
[2023-05-08] MEDS: APIXABAN 5 MG TABLET PO SCH (08:05)
[2023-05-08] MEDS: CHOLECALCIFEROL 25 MCG TABLET PO SCH (08:05)
[2023-05-08] MEDS: guaiFENesin 600 MG TABLET PO SCH (08:05)
[2023-05-08] MEDS: TAMSULOSIN 0.4 MG CAPSULE PO SCH (08:05)
[2023-05-08] MEDS: SACCHAROMYCES BOULARDII 250 MG CAPSULE PO SCH (08:05)
[2023-05-08] MEDS: SOLIFENACIN SUCCINATE 5 MG TABLET PO SCH (08:05)
[2023-05-08] MEDS: METOPROLOL TARTRATE 50 MG TABLET PO SCH (08:06)
[2023-05-08] MEDS: SPIRONOLACTONE 25 MG TABLET PO SCH (08:06)
[2023-05-08] MEDS: metFORMIN 500 MG TABLET PO SCH (08:06)
[2023-05-08] MEDS: MULTIVITAMIN TABLET PO SCH (08:06)
[2023-05-08] MEDS: LOSARTAN 50 MG TABLET PO SCH (08:10)
[2023-05-08] MEDS: FINASTERIDE 5 MG TABLET PO SCH (08:10)
[2023-05-08] MEDS: ASCORBIC ACID 500 MG TABLET PO SCH (08:10)
--- NOTE | 2023-05-08 08:58 | Discharge Plan ---
Discharge Plan Problem Reviewed?: Yes Disposition: Home, Self Care Condition: Fair Prescriptions: Amoxicillin 2,000 mg PO ONCE PRN #4 cap PRN Reason: As Needed Per Provider Orders Amox/Clav 875/125 [Augmentin 875/125 Tab] 1 tablet PO BID 12 Days #24 tablet Lactobacillus Acidophilus [Probiotic Acidophilus] 1 each PO DAILY #12 tablet Diet: Diabetic Activity Restrictions: wear glovs w/ rusted cars Shower Restrictions: No Driving Restrictions: No Instruction Topics: Meds Heart Valve Health Concerns: You were hospitalized after you came here weak, with chills, and shortness of breath. Your evaluation showed that you have an infection in your bloodstream. Bloodstream infections are considered a very serious condition. From the description of your recent dental work, this bacteria got into your bloodstream because you did not take proper antibiotics, at the proper time, before that dental work. The bacteria that grew in your bloodstream is called Streptococcus mitis. There is a high likelihood that the Strep bacteria could have settled on your heart valve and cause complications to the new valve, plus YOU WOULD then have needed 6-8 weeks of IV antibiotics. In your case, your Echocardiogram showed that the bacteria did not go on the valve. You are being discharged home to take 12 more days of oral antibiotics to clear the bacteria out of your bloodstream. YOU MUST be more careful regarding procedures that could cause bacteria to enter your bloodstream. YOU SHOULD NOT WORK ON CARS OR OTHER RUSTED AND DIRTY OBJECTS, UNLESS YOU ARE WEARING GLOVES, SO NOT TO GET CUTS ON YOUR SKIN, where bacteria can enter your body. YOU MUST TAKE AMOXICILLIN 2000 MG ALL AT ONCE, 30- 60 MIN BEFORE ALL DENTAL WORK. This is a lifetime recommendation. A new prescription for Amoxicillin 875 mg, to take twice a day for the next 12 days, has been sent to your [facility] pharmacy in [place]. Also a prescription for a probiotic to take daily for 12 days was ordered. Take both of these until all the tablets are gone. A separate prescription for Amoxicillin 500 mg tablets, to have in the house and take before dental work, has also been sent to your pharmacy. DO NOT MIX UP THESE 2 BOTTLES OF AMOXICILLIN. You may resume all your other pre-hospital medications. 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 Because of your poor memory, you should keep a list of your diagnoses, and a list of the medicines you take, on a small card in your wallet. YOU MUST TELL EVERY MEDICAL PROVIDER YOU MEET, THAT YOU HAVE A HEART VALVE REPLACEMENT, in addition to your other diagnoses of PRIOR STROKE, BORDERLINE DIABETES, AFIB, CHF, etc. Plan of Treatment: As above. All new prescriptions were electronically sent to your [facility] pharmacy in [place]. Care Goals: Improvement in symptoms and stabilization are the goals. Assessment: These instructions and this list of medicines are provided for you as reminders. Additional Instructions or Follow Up instructions: If you have any other new or worsening symptoms, call your Primary Care Provider for advice, or come to the ER. No Smoking: If you smoke, Please STOP! Call for help. Follow-up with: COY MELGOZA PA [Primary Care Provider] -
[2023-05-08] MEDS ORDERED: TORSEMIDE 5 MG PO SCH (09:00)
[2023-05-08] MEDS ORDERED: TORSEMIDE 20 MG TABLET PO SCH (09:00)
--- NOTE | 2023-05-08 13:02 | DISCHARGE SUMMARY ---
Discharge Summary Admit Date: 05/05/23 Discharge Date: 05/08/23 Discharging Provider: Augusta Mckeon MD Primary Care Provider: Kelsey Campbell Code Status: Attempt Resuscitation Condition at Discharge: Fair Discharge Disposition: 01 Home, Self Care - DIAGNOSES Admission Diagnoses: 1) Sepsis 2) Acute, hypoxemic resp failure 3) PNA 4) Type 2 DM with hyperglycemia 5) A-fib 6) Microscopic hematuria - HPI History of Present Illness: Pt presented 05/05/23 in the ED with with generalized weakness, chills, and trouble breathing x1-2 days. He had a dental procedure done (cavity filling) on 05/02/23. States that 05/04/23 night he was on the toilet and had trouble getting up and he had to roll onto the floor and crawl back in to this room. Denied any falls or head injuries. He had intermittent bouts of weakness where he felt his legs would give out, but no falls reported. Denied dysuria or noting any hematuria, diarrhea. Appetite had been poor. No abdominal pain. Vaccinated against flu and vaccinated x 2 against covid. Reported he thinks he is up to date on pneumonia vaccine. Denied fevers but did feel chills. Reported nasal congestion, dry cough, nausea and vomiting that night 05/04/23. After admission, pt's stated that 1 month ago, he had gone to the dentist for a filling, the dental clinic provided him with 4 abx pills - unsure of which one, which he took all at once and then they took him back for the procedure immediately. Pt states 05/02/23, he had an appointment for another filling. This time he told his he needed abx and she gave him left over ciprofloxacin. During this procedure, he was not provided with abx at the clinic nor given a prescription beforehand. Pt's explained that he has to take abx prior to dental procedures because he has a hx of 2 knee replacements, 1 hip replacement and a heart valve replacement in September 2021. Pt was unsure if dentist is aware of his heart valve replacement. also mentioned that pt fixes up old meño cars as a hobby and occasionally cuts himself. Pt stated that he is a prediabetic and claims he isn't taking medication for DM. But his medication list shows metformin and jardiance. - HOSPITAL COURSE Hospital Course: (1) Sepsis In the ED 05/05/23, pt was found to have elevated wbc, tachy, elevated RR, infection in setting of pna. After admission, pt denied any symptoms. Vital signs were were stable and WNL throughout his hospital stay. Sepsis resolved. (2) Streptococcal bacteremia Pt presented in the ED 05/05/23 for fatigue, weakness, dyspnea. He was tachycardic in the ED with elevated WBC of 12.4. Started on IV ampicillin- sulbactam. After admission, CBC was drawn daily to monitor WBCs. Day after admission, he had an increase of WBC to 21 and then started to decrease after that increase. Blood cultures were positive for Strep mitis. Echo 05/07/23 negative for endocarditis. Blood cultures drawn after IV amp-sulbactam were negative at 48 hours. Discharged with Amoxicillin 875mg bid to finish a total of 14 day abx course. (3) Pneumonia Pt reported cough, congestion and other URI symptoms in the ED. CXR 05/05/23 negative for cardiopulmonary cause. CTA 05/05/23 shows no signs of PE but there is diffuse groundglass opacities of the dependent portions of the bilateral hemithoraces - nonspecific findings that may represent atelectasis/infection/inflammatory processes, no focal consolidation. CXR 05/06/23 revealed "Patchy airspace opacity of the left upper lung zone. He was given IV ampicillin-sulbactam to cover this as well. No symptoms at the time of discharge. (4) Hypoxia Pt presented with dyspnea in the ED 05/05/23. Oxygen saturation was 86-88% RA in the ED. Placed on 2L O2. CXR negative for cardiopulmonary cause. CTA shows no signs of PE but there is diffuse groundglass opacities of the dependent portions of the bilateral hemithoraces - nonspecific findings that may represent atelectasis/infection/inflammatory processes, no focal consolidation. CXR 05/07 suggestive of pulmonary edema. IVF stopped on 05/07/23 and initiated home med - torsemide due to pulmonary edema. Oxygen saturation WNL on RA upon discharge. (5) Atrial fibrillation Hx of a-fib on metoprolol and eliquis. No changes to home meds. Instructed to continue medications. (6) Type 2 diabetes mellitus Pt was not aware that he was a diabetic, pt's reported that he is borderline diabetic. Both stated that he was on metformin for his prediabetes. Both were unsure if he was taking jardiance. POC blood glucose done in the hospital. A1c=6.1 - controlled. Provided diabetic education including diet control and medications. Instructed to continue DM medications. (7) History of transcatheter aortic valve replacement (TAVR) Requested and recieved last cardiology visit not. Pt had a TAVR procedure in July 2019. Pt did not share that he has a hx of TAVR. When asked if he has a heart conditions, he stated no. Later stated he has a heart valve replaced in the past and has a-fib. The EMR did not have a TAVR procedure listed in his hx. The ED was also not aware of this hx. He was unsure if his dentist was aware that he had this hx. Pt stated he regularly sees his chief design engineer Dr[facility] [place], next appointment in May. Continue care with Dr. Benjamin. Echo 05/07/23 negative for endocarditis. Discharged with amoxicillin 500mg and instructed to take 2000mg of amoxicillin about 30-60 minutes before a dental procedure. 5 refills provided. Educated pt and pt's at bedside about lifetime prophylactic tx needed before procedures. - ALLERGIES Allergies/Adverse Reactions: Allergies Allergy/AdvReac Type Severity Reaction Status Date / Time No Known Drug Allergies Allergy Verified 05/05/23 09:44 - MEDICATIONS Home Medications: Ambulatory Orders Medication Instructions Recorded Confirmed Finasteride 5 mg PO DAILY 10/14/17 05/05/23 Tamsulosin [Flomax] 0.4 mg PO DAILY 10/14/17 05/05/23 metFORMIN [Glucophage] 500 mg PO BID 10/14/17 05/05/23 Apixaban [Eliquis] 5 mg PO BID 04/10/23 05/05/23 Atorvastatin Calcium 40 mg PO DAILY 04/10/23 05/05/23 Empagliflozin [Jardiance] 10 mg PO DAILY 04/10/23 05/05/23 Eplerenone [Inspra] 25 mg PO BID 04/10/23 05/06/23 Losartan Potassium 100 mg PO DAILY 04/10/23 05/05/23 Potassium Chloride 8 meq PO DAILY 04/10/23 05/05/23 oxyBUTYnin chloride [Oxybutynin 5 mg PO DAILY 04/10/23 05/05/23 Chloride] Cholecalciferol [Vitamin D3] 50 mcg PO DAILY 05/05/23 05/05/23 Elderberry Fruit [Elderberry] 350 mg PO DAILY 05/05/23 05/05/23 Metoprolol Tartrate [Lopressor] 50 mg PO BID 05/06/23 05/06/23 Torsemide 5 mg PO DAILY 05/06/23 05/06/23 Amox/Clav 875/125 [Augmentin 1 tablet PO BID 12 Days #24 tablet 05/08/23 875/125 Tab] Amoxicillin 2,000 mg PO ONCE PRN #4 cap 05/08/23 Lactobacillus Acidophilus 1 each PO DAILY #12 tablet 05/08/23 [Probiotic Acidophilus] - PHYSICAL EXAM AT DISCHARGE General Appearance: positive: No acute distress, Alert, Other (Semi-fowlers in b ed) Eyes Bilateral: positive: Normal inspection, EOMI, No lid inflammation, Conjunctivae nml, No scleral icterus Neck: positive: Nml inspection, No JVD Respiratory: positive: No respiratory distress, Breath sounds nml. negative: Wheezes, Rales, Rhonchi Cardiovascular: positive: No murmur, No gallop, Irregularly irregular (Controlled rate. ). negative: Friction rub, Decreased pulse(s) Peripheral Pulses: positive: 2+ Abdomen: positive: Non-tender, Nml bowel sounds Back: positive: Nml inspection Skin: positive: Color nml, No rash, Warm, Dry Neurologic/Psychiatric: positive: Oriented x3 - LABS Result Diagrams: 05/08/23 05:02 05/05/23 20:13 - DIAGNOSTIC IMAGING Diagnostic Imaging Results: Final report reviewed - SEPSIS Current Stage of Sepsis: Resolved Possible source of Sepsis: Other (Dental cause) - FOLLOW UP Follow Up: Follow up with PCP and chief design engineer.
[2023-05-08 14:01] VITALS: BP 171/79
[2023-05-08 19:07] LABS: MYCOPLASMA PNEUMONIAE IGG ABS 502 U/mL (0-99); MYCOPLASMA PNEUMONIAE IGM ABS <770 U/mL (0-769)
[2023-05-08] MEDS ORDERED: ATORVASTATIN 40 MG TABLET PO SCH (21:00)
== END 2023-05-08 14:00 | disposition home or self-care (01) | DRG 871 ==
LOC: ED 09:21 → MS2 19:50 → OBSVTOIN 05-06 10:31
PROVIDERS: ADMIT Student in an Organized Health Care Education/Training Program; ATTEND Internal Medicine
DX: A41.9 Sepsis, unspecified organism (principal); A40.8 Other streptococcal sepsis; J18.9 Pneumonia, unspecified organism; J96.01 Acute respiratory failure with hypoxia; I48.20 Chronic atrial fibrillation, unspecified; I48.91 Unspecified atrial fibrillation; I11.0 Hypertensive heart disease with heart failure; I50.9 Heart failure, unspecified; E11.65 Type 2 diabetes mellitus with hyperglycemia; Z20.822 Contact with and (suspected) exposure to COVID-19; E78.00 Pure hypercholesterolemia, unspecified; N40.0 Benign prostatic hyperplasia without lower urinary tract symptoms; M19.90 Unspecified osteoarthritis, unspecified site; M54.9 Dorsalgia, unspecified; G89.29 Other chronic pain; R31.29 Other microscopic hematuria; Z79.01 Long term (current) use of anticoagulants; Z79.84 Long term (current) use of oral hypoglycemic drugs; Z79.899 Other long term (current) drug therapy; Z86.711 Personal history of pulmonary embolism; Z86.718 Personal history of other venous thrombosis and embolism; Z95.2 Presence of prosthetic heart valve
CPT/HCPCS: 36415; 71045; 71275; 76770; 80053; 80061; 81001; 83036; 83605; 83735; 84145; 85025; 86738; 87040; 87077; 87150; 87181; 87633; 93306; 94640; 96365; 96366; 96368; 99284; 99285; A9270; Q9967; 83721; 87086